=== PATIENT | male | born 1935 | race Caucasian/White ===

== ENCOUNTER 2019-01-05 07:50 | Inpatient (IN) | payer MEDICARE, OTHER ==
[2019-01-05 09:50] LABS: CHLORIDE,CL 104 mmol/L (98-107); SODIUM,NA 136 mmol/L (136-145)
--- NOTE | 2019-01-05 09:55 | EDM.PDOC ---
ED HPI GENERAL MEDICAL PROBLEM - General Chief Complaint: Genitourinary Problem Stated Complaint: Hematuria Time Seen by Provider: 01/05/19 09:19 Source of Information: Reports: Patient, Other ([facility]) History Limitations: Reports: No Limitations - History of Present Illness INITIAL COMMENTS - FREE TEXT/NARRATIVE: Patient sent to ER from [facility] home secondary to hematuria. Has had indwelling Anglin for two years per patient. Patient reports that he often has some blood noted in Anglin but that it comes and goes, eventually clearing up on its own. Denies trauma to Anglin/penis. Staff at [facility] were worried when they noted some bleeding at meatus around Anglin site. ER nurse did not feel that there was any significant amount of blood there when patient arrived. Anglin was changed shortly after arrival and a few small clots were noted. Patient himself feels ok. His only other complaint is that he feels a bit tired today. Denies abdominal pain or bladder pain. No other acute changes. Has been eating and drinking well. - Related Data Allergies Allergy/AdvReac Type Severity Reaction Status Date / Time No Known Allergies Allergy Verified 08/26/18 22:18 Home Meds: Home Meds Alendronate [Fosamax] 70 mg PO WEEKLY 11/18/15 [History] Amoxicillin [Amoxil] 2,000 mg PO ASDIRECTED PRN 11/18/15 [History] Calcium Carbonate [Tums Extra Strength] 1 tab PO BID 11/18/15 [History] Dextran 70/Hypromellose [Artificial Tears] 2 drop EYEBOTH ASDIRECTED PRN [History] Ergocalciferol (Vitamin D2) [Drisdol] 1 cap PO ASDIRECTED 11/18/15 [History] Insulin Glarg,Human.Rec.Analog [LantUS Solostar] 16 unit SUBCUT DAILY 11/18/15 [ History] Iron Aspgly&PS/B12/C/Ca/FA/Suc [Niferex-150 Forte] 1 cap PO BID 11/18/15 [ History] Mycophenolate [Myfortic] 180 mg PO BID 11/18/15 [History] Omeprazole [Prilosec] 20 mg PO DAILY 11/18/15 [History] Polyethylene Glycol 3350 [MiraLAX] 17 gm PO DAILY 01/14/16 [History] Sennosides/Docusate Sodium [Senna-S] 2 tab PO DAILY 11/18/15 [History] Tacrolimus [Prograf] 1 mg PO BEDTIME 11/18/15 [History] Tacrolimus [Prograf] 1.5 mg PO DAILY 11/18/15 [History] Tamsulosin HCl 0.8 mg PO DAILY 11/18/15 [History] Acetaminophen [Non-Aspirin] 650 mg PO Q6H PRN 08/27/18 [History] Aspirin [Halfprin] 81 mg PO DAILY 08/27/18 [History] Carvedilol [Coreg] 12.5 mg PO BID 08/27/18 [History] Finasteride 5 mg PO DAILY 08/27/18 [History] Furosemide [Lasix] 20 mg PO DAILY 08/27/18 [History] Lisinopril 2.5 mg PO DAILY 08/27/18 [History] Warfarin Sodium [Coumadin] 3 mg PO DAILY 08/27/18 [History] atorvaSTATin [Lipitor] 20 mg PO BEDTIME 08/27/18 [History] Past Medical History HEENT History: Reports: Allergic Rhinitis, Cataract, Impaired Vision, Macular Degeneration, Other (See Below). Denies: Hard of Hearing Other HEENT History: Patient wears glasses with history of strabismus and correction as below. 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 Dry eye syndrome. Nasal septal deviation. Cardiovascular History: Reports: Afib, CAD, Cardiomyopathy, Heart Failure, High Cholesterol, Hypertension, CO, PVD, Stents, Other (See Below). Denies: Aneurysm , Blood Clots/VTE/DVT, Heart Murmur, Syncope Other Cardiovascular History: Mild carotid occlusive disease. Non-STEMI in 2016. Respiratory History: Reports: Intubation, Previous, Pulmonary Fibrosis, Other ( See Below). Denies: Intubation, Difficult Other Respiratory History: Pulmonary fibrosis by chest x-ray. Gastrointestinal History: Reports: Bowel Obstruction, Chronic Constipation, GERD , Hemorrhoids, Other (See Below) Other Gastrointestinal History: Large right-sided ventral abdominal hernia. Recurrent ileus. 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 Acute renal failure in 2005 with subsequent dialysis and renal transplant as below. Bilateral renal cysts. Hydrocele. Hyperphosphatemia secondary to persistent renal insufficiency. Musculoskeletal History: Reports: Arthritis, Back Pain, Chronic, Neck Pain, Chronic, Osteoarthritis, Osteoporosis. Denies: Gout, RA, SLE Other Musculoskeletal History: Scoliosis. Neurological History: Reports: Concussion, Head Trauma, Other (See Below) Other Neuro History: Head concussion on 11/30/04. Patient requires a cane for ambulation. Psychiatric History: Reports: None Endocrine/Metabolic History: Reports: Diabetes, Type II, Hypothyroidism, IDDM, Osteopenia, Osteoporosis, Vitamin D Deficiency, Other (See Below). Denies: Diabetes, Type I, Diabetes Mellitus, Type 3c Other Endocrine/Metabolic History: Hyponatremia secondary to CHF. Hematologic History: Reports: Anemia (of CKD), Other (See Below) Other Hematologic History: Chronic anemia secondary to chronic illnesses and renal disease Immunologic History: Reports: Immunosuppression, Solid Organ Transplant, Other ( See Below). 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 Denies: Prostate Other Oncologic History: History of multiple skin cancers as above requiring excisions as below. Dermatologic History: Reports: Melanoma, Seborrheic Dermatitis, Other (See Below ). Denies: Eczema, Psoriasis Other Dermatologic History: Recurrent decubiti and actinic keratosis area - Past Surgical History Head Surgeries/Procedures: Reports: None HEENT Surgical History: Reports: Cataract Surgery, Laser Surgery, Other (See Below) Other HEENT Surgeries/Procedures: Left cataract surgery in 2002 with subsequent YAG treatment of the posterior capsule in 2004. Bilateral strabismus correction in 1962 Cardiovascular Surgical History: Reports: AICD, Coronary Artery Stent, Pacer, Other (See Below) Other Cardiovascular Surgeries/Procedures: AICD/pacemaker placement in 2016 and PTCA/stent in 2016. Male Surgical History: Reports: TURP-Transurethral Resection of Prostate, Other (See Below) Other Male Surgeries/Procedures: TURP in 2000. Renal transplant in May 2008. Oncologic Surgical History: Reports: Other (See Below) Other Oncologic Surgeries/Procedures: Excision of melanoma from the left shoulder. Basal cell carcinoma removed from the right forearm and nose. Additional history of excision of squamous cell carcinoma. Dermatological Surgical History: Reports: Skin Biopsy, Other (See Below) Other Dermatological Surgeries/Procedures: Multiple skin excision as above. - Past Imaging History Past Imaging History: Reports: MRI (MRI of the brain on 08/18/14), Stress Testing (Low level cardiac stress test on 12/29/15), Ultrasound (Renal ultrasound on 07/07/14.) Social & Family History - Family History Family Medical History: Noncontributory Cardiac: Reports: Afib, Aneurysm, CAD, Hypertension, CO, Other (See Below) Other Cardiac Family History: Father with CO at age 60. Brother with fatal ruptured abdominal aortic aneurysm at age 68. 2 brothers with atrial fibrillation. Hypertension in brother. Psychiatric: Reports: Anxiety, Depression, Other (See Below) Other Psychiatric Family History: Sister with anxiety depression disorder Endocrine/Metabolic: Reports: Diabetes, type II, Other (See Below) Other Endocrine/Metabolic Family History: Mother and sister with diabetes mellitus. Oncologic: Reports: Other (See Below) Other Oncologic Family History: Sister with breast cancer in her 60s. Mother with unknown type of skin cancer. Sister with fatal lung cancer in her 70s with history of tobacco use. 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 ED EXAM, RENAL/ - Physical Exam Exam: See Below Exam Limited By: No Limitations General Appearance: Alert, WD/WN, No Apparent Distress Eye Exam: Bilateral Eye: EOMI, PERRL Ears: Normal External Exam Nose: No: Nasal Deformity, Nasal Swelling, Nasal Drainage Throat/Mouth: Normal Lips, Normal Voice, No Airway Compromise Head: Atraumatic, Normocephalic Neck: Supple Respiratory/Chest: No Respiratory Distress, Lungs Clear, Normal Breath Sounds, No Accessory Muscle Use Cardiovascular: Regular Rate, Rhythm, No Edema, No Murmur GI/Abdominal: Normal Bowel Sounds, Soft, Non-Tender, No Distention (Male) Exam: Other (Anglin in place, no active bleeding around insertion). No : Urethral Discharge Rectal (Males) Exam: Normal Rectal Tone, Heme - Stool Back Exam: No: Muscle Spasm, Paraspinal Tenderness, Vertebral Tenderness Extremities: Non-Tender, No Pedal Edema, Normal Capillary Refill Neurological: Alert, Oriented, Normal Cognition, Other (equal tone and strength bilaterally) Psychiatric: Normal Affect, Normal Mood Skin Exam: Warm, Dry, Normal Color Course - Orders/Labs/Meds Orders: Active Orders 24 hr Category Date Time Status EKG Documentation Completion [RC] ASDIRECTED Care 01/05/19 10:05 Active Sodium Chloride 0.9% [Normal Saline] 1,000 ml Med 01/05/19 10:00 Active IV .BOLUS Sodium Chloride 0.9% [Saline Flush] Med 01/05/19 10:00 Active 10 ml FLUSH ASDIRECTED PRN Saline Lock Insert [OM.PC] Routine Oth 01/05/19 10:00 Ordered EKG 12 Lead [EK] Routine Ther 01/05/19 10:05 Ordered Medication Orders Sodium Chloride (Normal Saline) 1,000 mls @ 75 mls/hr IV .BOLUS ONE Stop: 01/05/19 23:19 Sodium Chloride (Saline Flush) 10 ml FLUSH ASDIRECTED PRN PRN Reason: Keep Vein Open Labs: Laboratory Tests 01/05/19 01/05/19 01/05/19 Range/Units 08:20 08:20 08:20 WBC 7.6 (4.0-10.2) K/uL RBC 3.63 L (4.33-5.41) M/uL Hgb 10.6 L (13.1-16.8) g/dL Hct 33.4 L (39.0-49.0) % MCV 92.0 (84.0-98.0) fL MCH 29.2 (28.2-33.3) pg MCHC 31.7 (31.7-36.0) g/dL RDW 12.6 (11.2-14.1) % Plt Count 177 (150-350) K/uL Neut % (Auto) 79.7 (45.0-80.0) % Lymph % (Auto) 9.5 L (10.0-50.0) % Dickenson % (Auto) 8.9 (2.0-14.0) % Eos % (Auto) 1.5 (0.0-5.0) % Baso % (Auto) 0.4 (0.0-2.0) % Neut # (Auto) 6.03 (1.40-7.00) K/uL Lymph # (Auto) 0.72 (0.50-3.50) K/uL Dickenson # (Auto) 0.67 (0.00-1.00) K/uL Eos # (Auto) 0.11 (0.00-0.50) K/uL Baso # (Auto) 0.03 (0.00-0.20) K/uL PT 23.2 H (9.5-12.0) SEC INR 2.2 APTT 40.7 H (21.0-31.3) SEC Sodium 136 (136-145) mmol/L Potassium 5.9 H* (3.5-5.1) mmol/L Chloride 104 (98-107) mmol/L Carbon Dioxide 27.0 (21.0-32.0) mmol/L BUN 52 H (7-18) mg/dL Creatinine 1.99 H (0.51-1.17) mg/dL Est Cr Clr Drug Dosing TNP Estimated GFR (MDRD) 32 mL/min Glucose 274 H (74-106) mg/dL Calcium 8.5 (8.5-10.1) mg/dL Total Bilirubin 0.5 (0.2-1.0) mg/dL AST 16 (15-37) U/L ALT 23 (12-78) U/L Alkaline Phosphatase 69 (46-116) IU/L Total Protein 6.6 (6.4-8.2) g/dL Albumin 3.3 L (3.4-5.0) g/dL Specimen Type Urine Color Urine Appearance Urine pH (5.0-9.0) Ur Specific [place] (1.005-1.030) Urine Protein (NEGATIVE) mg/dL Urine Glucose (UA) (NEGATIVE) mg/dL Urine Ketones (NEGATIVE) mg/dL Urine Occult Blood (NEGATIVE) Urine Nitrite (NEGATIVE) Urine Bilirubin (NEGATIVE) Urine Urobilinogen (0.2-1.0) E.U./dL Ur Leukocyte Esterase (NEGATIVE) Urine RBC /HPF Urine WBC /HPF Ur Epithelial Cells /LPF Urine Bacteria (NONE TO FEW) /HPF 01/05/19 Range/Units 09:20 WBC (4.0-10.2) K/uL RBC (4.33-5.41) M/uL Hgb (13.1-16.8) g/dL Hct (39.0-49.0) % MCV (84.0-98.0) fL MCH (28.2-33.3) pg MCHC (31.7-36.0) g/dL RDW (11.2-14.1) % Plt Count (150-350) K/uL Neut % (Auto) (45.0-80.0) % Lymph % (Auto) (10.0-50.0) % Dickenson % (Auto) (2.0-14.0) % Eos % (Auto) (0.0-5.0) % Baso % (Auto) (0.0-2.0) % Neut # (Auto) (1.40-7.00) K/uL Lymph # (Auto) (0.50-3.50) K/uL Dickenson # (Auto) (0.00-1.00) K/uL Eos # (Auto) (0.00-0.50) K/uL Baso # (Auto) (0.00-0.20) K/uL PT (9.5-12.0) SEC INR APTT (21.0-31.3) SEC Sodium (136-145) mmol/L Potassium (3.5-5.1) mmol/L Chloride (98-107) mmol/L Carbon Dioxide (21.0-32.0) mmol/L BUN (7-18) mg/dL Creatinine (0.51-1.17) mg/dL Est Cr Clr Drug Dosing Estimated GFR (MDRD) mL/min Glucose (74-106) mg/dL Calcium (8.5-10.1) mg/dL Total Bilirubin (0.2-1.0) mg/dL AST (15-37) U/L ALT (12-78) U/L Alkaline Phosphatase (46-116) IU/L Total Protein (6.4-8.2) g/dL Albumin (3.4-5.0) g/dL Specimen Type Urinfol Urine Color Red Urine Appearance Turbid Urine pH 7.5 (5.0-9.0) Ur Specific [place] 1.020 (1.005-1.030) Urine Protein >=300 H (NEGATIVE) mg/dL Urine Glucose (UA) 250 H (NEGATIVE) mg/dL Urine Ketones Negative (NEGATIVE) mg/dL Urine Occult Blood Moderate H (NEGATIVE) Urine Nitrite Negative (NEGATIVE) Urine Bilirubin Negative (NEGATIVE) Urine Urobilinogen 0.2 (0.2-1.0) E.U./dL Ur Leukocyte Esterase Negative (NEGATIVE) Urine RBC Packed /HPF Urine WBC 10-20 H /HPF Ur Epithelial Cells Rare /LPF Urine Bacteria Rare (NONE TO FEW) /HPF Meds: Medications Generic Name Dose Route Start Last Admin Trade Name Freq PRN Reason Stop Dose Admin Sodium Chloride 1,000 mls @ 75 mls/hr 01/05/19 10:00 Normal Saline IV 01/05/19 23:19 .BOLUS ONE Sodium Chloride 10 ml 01/05/19 10:00 Saline Flush FLUSH ASDIRECTED PRN Keep Vein Open - Re-Assessments/Exams Free Text/Narrative Re-Assessment/Exam: 01/05/19 10:06 [facility] for Anglin irrigation but have not as yet heard back from . Patient noted to have elevated K at 5.9 Review of previous labs shows that he usually runs high normal for potassium. BUN and Cr also elevated but their levels are not unusual when compared to previous levels. IV NS ordered as well as baseline EKG. Free Text/Narrative Re-Assessment/Exam: 01/05/19 10:27 [facility] called [facility] decline [facility] stating that no [facility] coverage available this weekend. Patient would prefer to stay here in [place] vs transfer to [place]. Will admit to floor for continuous bladder irrigation. Will continue to monitor potassium level. [facility] to take over care in AM. Departure - Departure Time of Disposition: 10:30 Disposition: Admitted As Inpatient 68 Condition: Good Clinical Impression: Hyperkalemia Hematuria Qualifiers: Hematuria type: gross Qualified Code(s): R31.0 - Gross hematuria - Discharge Information *PRESCRIPTION DRUG MONITORING PROGRAM REVIEWED*: Not Applicable *COPY OF PRESCRIPTION DRUG MONITORING REPORT IN PATIENT ALEX: Not Applicable Referrals: Sheets-Maira Jacome MD [Primary Care Provider] - Forms: ED Department Discharge - Problem List & Annotations (1) Hematuria SNOMED Code(s): 50092554 Code(s): R31.9 - HEMATURIA, UNSPECIFIED Status: Acute Priority: High Current Visit: Yes Onset Date: ~08/23/18 Annotation/Comment:: History of intermittent hematuria. [facility] staff feel that today's episode is more significant than usual. Some clots noted when Anglin changed in ER. Will admit for continuous bladder irrigation and see if hematuria clears. UC ordered. No fevers, UA did not show changes suggestive of acute infection. Qualifiers: Hematuria type: gross Qualified Code(s): R31.0 - Gross hematuria (2) Hyperkalemia SNOMED Code(s): 00664479 Code(s): E87.5 - HYPERKALEMIA Status: Acute Priority: High Current Visit: Yes Annotation/Comment:: IV fluids ordered. EKG ordered. Recheck levels today and tomorrow. Suspect secondary to chronic kidney failure (3) Renal failure SNOMED Code(s): 38596768 Code(s): N19 - UNSPECIFIED KIDNEY FAILURE Status: Chronic Priority: Low Current Visit: No Annotation/Comment:: Chronic Qualifiers: Renal failure chronicity: chronic (4) Transplant recipient SNOMED Code(s): 214234184 Code(s): Z94.89 - OTHER TRANSPLANTED ORGAN AND TISSUE STATUS Status: Acute Priority: Low Current Visit: No Annotation/Comment:: kidney transplant recipient (5) Osteoarthritis SNOMED Code(s): 506156807 Code(s): M19.90 - UNSPECIFIED OSTEOARTHRITIS, UNSPECIFIED SITE Status: Chronic Priority: Low Current Visit: No Annotation/Comment:: Stable by history Qualifiers: Osteoarthritis location: multiple joints Osteoarthritis type: primary Qualified Code(s): M15.0 - Primary generalized (osteo)arthritis (6) Hypertension SNOMED Code(s): 76038310 Code(s): I10 - ESSENTIAL (PRIMARY) HYPERTENSION Status: Chronic Priority : Low Current Visit: No Annotation/Comment:: Stable in the emergency room. Qualifiers: Hypertension type: essential hypertension Qualified Code(s): I10 - Essential (primary) hypertension (7) IDDM (insulin dependent diabetes mellitus) SNOMED Code(s): 88078169 Code(s): E11.9 - TYPE 2 DIABETES MELLITUS WITHOUT COMPLICATIONS; Z79.4 - MANAGER OFFICE SERVICES (CURRENT) USE OF INSULIN Status: Chronic Priority: Medium Current Visit: No Annotation/Comment:: QID/AC accuchecks ordered. - Problem List Review Problem List Initiated/Reviewed/Updated: Yes - My Orders Last 24 Hours: My Active Orders 01/05/19 10:00 Sodium Chloride 0.9% [Normal Saline] 1,000 ml IV .BOLUS Sodium Chloride 0.9% [Saline Flush] 10 ml FLUSH ASDIRECTED PRN Saline Lock Insert [OM.PC] Routine 01/05/19 10:05 EKG Documentation Completion [RC] ASDIRECTED EKG 12 Lead [EK] Routine - Assessment/Plan Admission H&P: Please use this note as an admission H&P Last 24 Hours: My Active Orders 01/05/19 10:00 Sodium Chloride 0.9% [Normal Saline] 1,000 ml IV .BOLUS Sodium Chloride 0.9% [Saline Flush] 10 ml FLUSH ASDIRECTED PRN Saline Lock Insert [OM.PC] Routine 01/05/19 10:05 EKG Documentation Completion [RC] ASDIRECTED EKG 12 Lead [EK] Routine Assessment:: as above Plan: as above. Anticipate 3-4 day stay with goal of hematuria to clear and potassium to normalize. May need to consult Urology if hematuria shows no improvement.
[2019-01-05] MEDS ORDERED: Sodium Chloride 0.9% 10 ML Syringe FLUSH PRN (10:00)
[2019-01-05] MEDS ORDERED: Sodium Chloride 0.9% 1,000 ML IV ONE (10:00)
[2019-01-05] MEDS ORDERED: Lidocaine 2% HCl 11 ML Jelly Filled Syringe ONE ×2 (11:19→11:20)
[2019-01-05] MEDS ORDERED: Clotrimazole 1% Crm 15 GM Tube TOP PRN (12:18)
[2019-01-05] MEDS ORDERED: Acetaminophen 325 MG Tab PO PRN (12:18)
[2019-01-05] MEDS ORDERED: Insulin Glarg,Human.Rec.Analog 100 UNIT/ML ML SUBCUT ONE (12:45)
[2019-01-05] MEDS ORDERED: Levothyroxine 50 MCG Tab PO ONE (12:45)
[2019-01-05] MEDS ORDERED: Furosemide 20 MG Tab PO ONE (12:45)
[2019-01-05] MEDS ORDERED: Omeprazole 20 MG Cap.CR PO ONE (12:45)
[2019-01-05] MEDS ORDERED: Mineral Oil/Petrolatum/Phenylephrine/Shark Liver Oil Oint 57 GM Tube RECTAL PRN (12:45)
[2019-01-05] MEDS ORDERED: Polyvinyl Alcohol 1.4% Ophth Soln 15 ML Bottle EYEBOTH PRN (12:45)
[2019-01-05] MEDS ORDERED: Tacrolimus 0.5 MG Cap PO SCH ×2 (14:00→21:00)
[2019-01-05] MEDS ORDERED: Bisacodyl 10 MG Supp RECTAL PRN (15:52)
[2019-01-05 17:10] VITALS: BP 143/73
--- NOTE | 2019-01-05 18:13 | PCM.DCSUM1 ---
Discharge Summary - Hospital Course Brief History: Admitted to floor for treatment of hematuria and hyperkalemia Diagnosis: Stroke: No - Discharge Data Discharge Date: 01/05/19 Discharge Disposition: DC/Tfer to Acute Hospital 02 Condition: Good - Discharge Diagnosis/Problem(s) (1) Hematuria SNOMED Code(s): 30683713 ICD Code: R31.9 - HEMATURIA, UNSPECIFIED Status: Acute Priority: High Current Visit: Yes Onset Date: ~08/23/18 Problem Details: History of intermittent hematuria. [facility] feel that today's episode is more significant than usual. Some clots noted when Truj[place] changed. 1400ml of urine drained at this time. Noted to have increased discomfort in bladder area/nausea around 1700. Increased bloody leakage noted around [place] site again. Patient discussed with from Urology and , Hospitalist. Bladder scan performed during discussion which showed greater than 1000cc retained urine. 2200cc of clots and urine drained using 60cc syringe and technique suggested by . Given the continued large quantity of clot formation, it was elected to transfer patient to [place] where Urology available to consult. Warfarin held today. Theraputic INR noted this morning. Qualifiers: Hematuria type: gross Qualified Code(s): R31.0 - Gross hematuria (2) Hyperkalemia SNOMED Code(s): 43333226 ICD Code: E87.5 - HYPERKALEMIA Status: Acute Priority: High Current Visit: Yes Problem Details: IV fluids ordered. EKG ordered. EKG overall unremarkable. Suspect secondary to chronic kidney failure. Improved to 5.8 at this time. (3) Renal failure SNOMED Code(s): 30455563 ICD Code: N19 - UNSPECIFIED KIDNEY FAILURE Status: Chronic Priority: Low Current Visit: No Problem Details: Chronic Qualifiers: Renal failure chronicity: chronic (4) Transplant recipient SNOMED Code(s): 097664799 ICD Code: Z94.89 - OTHER TRANSPLANTED ORGAN AND TISSUE STATUS Status: Acute Priority: Low Current Visit: No Problem Details: kidney transplant recipient (5) Osteoarthritis SNOMED Code(s): 256728678 ICD Code: M19.90 - UNSPECIFIED OSTEOARTHRITIS, UNSPECIFIED SITE Status: Chronic Priority: Low Current Visit: No Problem Details: Stable by history Qualifiers: Osteoarthritis location: multiple joints Osteoarthritis type: primary Qualified Code(s): M15.0 - Primary generalized (osteo)arthritis (6) Hypertension SNOMED Code(s): 65457527 ICD Code: I10 - ESSENTIAL (PRIMARY) HYPERTENSION Status: Chronic Priority : Low Current Visit: No Problem Details: Stable in the emergency room. 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 Consideration of adding sliding scale short acting insulin at time of admission. No additional insulin given prior to transfer to [place]. (8) Hyperglycemia SNOMED Code(s): 46915751 ICD Code: R73.9 - HYPERGLYCEMIA, UNSPECIFIED Status: Acute Priority: Medium Current Visit: Yes - Patient Summary/Data Hospital Course: as above. Given persistent large amount of clotting noted, patient transferred to [place] where Urology available to consult. Patient feels improved after 2200cc of urine mixed with blood clots removed via [place]. - Discharge Plan *PRESCRIPTION DRUG MONITORING PROGRAM REVIEWED*: Not Applicable *COPY OF PRESCRIPTION DRUG MONITORING REPORT IN PATIENT ALEX: Not Applicable Home Medications: Home Meds Alendronate [Fosamax] 70 mg PO WEEKLY@0600 11/18/15 [History] Amoxicillin [Amoxil] 2,000 mg PO ASDIRECTED PRN 11/18/15 [History] Calcium Carbonate [Tums Extra Strength] 1 tab PO BID@0900,209911/18/15 [History ] Dextran 70/Hypromellose [Artificial Tears] 2 drop EYEBOTH ASDIRECTED PRN [History] Ergocalciferol (Vitamin D2) [Drisdol] 1 cap PO Q30D@0900 11/18/15 [History] Insulin Glarg,Human.Rec.Analog [LantUS Solostar] 16 unit SUBCUT DAILY@0900 11/18 [History] Iron Aspgly&PS/B12/C/Ca/FA/Suc [Niferex-150 Forte] 1 cap PO BID@0900,2100 11/18/ 16 [History] Mycophenolate [Myfortic] 360 mg PO BID@899,209911/18/15 [History] Omeprazole [Prilosec] 20 mg PO DAILY@89911/18/15 [History] Polyethylene Glycol 3350 [MiraLAX] 17 gm PO DAILY@209911/18/15 [History] Sennosides/Docusate Sodium [Senna-S] 2 tab PO BID@899,209911/18/15 [History] Tacrolimus [Prograf] 0.5 mg PO QAM@89911/18/15 [History] Tacrolimus [Prograf] 1 mg PO DAILY@209911/18/15 [History] Acetaminophen [Non-Aspirin] 650 mg PO Q6H PRN 08/27/18 [History] Aspirin [Halfprin] 81 mg PO DAILY@89908/27/18 [History] Carvedilol [Coreg] 12.5 mg PO BID@899,209908/27/18 [History] Finasteride 5 mg PO DAILY@209908/27/18 [History] Furosemide [Lasix] 20 mg PO DAILY@89908/27/18 [History] Lisinopril 2.5 mg PO DAILY@89908/27/18 [History] Warfarin Sodium [Coumadin] 3 mg PO SUTUTHSA@209908/27/18 [History] atorvaSTATin [Lipitor] 20 mg PO DAILY@209908/27/18 [History] Clotrimazole [Antifungal] 1 applic TOP ASDIRECTED PRN 01/05/19 [History] Levothyroxine [Synthroid] 50 mcg PO DAILY@89901/05/19 [History] Lidocaine 2% [Xylocaine 2% Jelly] 5 ml TOP ASDIRECTED PRN 01/05/19 [History] Phenyleph/Mineral Oil/Petrolat [Preparation H Ointment] 1 applic RECTAL ASDIRECTED PRN 01/05/19 [History] Tacrolimus [Prograf] 1 mg PO DAILY@89901/05/19 [History] Tamsulosin HCl [Flomax] 0.8 mg PO DAILY@209901/05/19 [History] Warfarin [Coumadin] 2.5 mg PO MOWEFR@209901/05/19 [History] Forms: ED Department Discharge Referrals: Sheets-Maira Jacome MD [Primary Care Provider] - - Discharge Summary/Plan Comment DC Time >30 min.: No - General Info Date of Service: 01/05/19 Admission Dx/Problem (Free Text: Feels improved after removal of recent clots/urine Functional Status: Reports: Pain Controlled - Review of Systems General: Reports: Fatigue. Denies: Fever, Malaise, Night Sweats HEENT: Denies: Ear Pain, Eye Pain, Headaches, Sinus Congestion, Sore Throat Pulmonary: Denies: Shortness of Breath, Pleuritic Chest Pain, Sputum, Hemoptysis , Wheezing Cardiovascular: Denies: Chest Pain, Palpitations, Lightheadedness Gastrointestinal: Reports: Nausea (resolved at this time). Denies: Abdominal Pain, Diarrhea, Vomiting Genitourinary: Reports: Hematuria, Retention Musculoskeletal: Reports: No Symptoms (no acute changes from baseline) Skin: Reports: No Symptoms Neurological: Reports: No Symptoms Psychiatric: Reports: No Symptoms - Patient Data Vitals - Most Recent: Last Vital Signs Temp 36.1 C 01/05/19 17:09 Pulse 72 01/05/19 17:09 Resp 18 01/05/19 17:09 BP 143/73 H 01/05/19 17:09 Pulse Ox 96 01/05/19 17:09 Weight - Most Recent: 81.374 kg Lab Results - Last 24 hrs: Laboratory Results - last 24 hr 01/05/19 01/05/19 01/05/19 Range/Units 08:20 08:20 08:20 WBC 7.6 (4.0-10.2) K/uL RBC 3.63 L (4.33-5.41) M/uL Hgb 10.6 L (13.1-16.8) g/dL Hct 33.4 L (39.0-49.0) % MCV 92.0 (84.0-98.0) fL MCH 29.2 (28.2-33.3) pg MCHC 31.7 (31.7-36.0) g/dL RDW 12.6 (11.2-14.1) % Plt Count 177 (150-350) K/uL Neut % (Auto) 79.7 (45.0-80.0) % Lymph % (Auto) 9.5 L (10.0-50.0) % [place] % (Auto) 8.9 (2.0-14.0) % Eos % (Auto) 1.5 (0.0-5.0) % Baso % (Auto) 0.4 (0.0-2.0) % Neut # (Auto) 6.03 (1.40-7.00) K/uL Lymph # (Auto) 0.72 (0.50-3.50) K/uL [place] # (Auto) 0.67 (0.00-1.00) K/uL Eos # (Auto) 0.11 (0.00-0.50) K/uL Baso # (Auto) 0.03 (0.00-0.20) K/uL PT 23.2 H (9.5-12.0) SEC INR 2.2 APTT 40.7 H (21.0-31.3) SEC Sodium 136 (136-145) mmol/L Potassium 5.9 H* (3.5-5.1) mmol/L Chloride 104 (98-107) mmol/L Carbon Dioxide 27.0 (21.0-32.0) mmol/L BUN 52 H (7-18) mg/dL Creatinine 1.99 H (0.51-1.17) mg/dL Est Cr Clr Drug Dosing TNP Estimated GFR (MDRD) 32 mL/min Glucose 274 H (74-106) mg/dL POC Glucose (65-110) mg/dl Calcium 8.5 (8.5-10.1) mg/dL Total Bilirubin 0.5 (0.2-1.0) mg/dL AST 16 (15-37) U/L ALT 23 (12-78) U/L Alkaline Phosphatase 69 (46-116) IU/L Total Protein 6.6 (6.4-8.2) g/dL Albumin 3.3 L (3.4-5.0) g/dL Specimen Type Urine Color Urine Appearance Urine pH (5.0-9.0) Ur Specific [place] (1.005-1.030) Urine Protein (NEGATIVE) mg/dL Urine Glucose (UA) (NEGATIVE) mg/dL Urine Ketones (NEGATIVE) mg/dL Urine Occult Blood (NEGATIVE) Urine Nitrite (NEGATIVE) Urine Bilirubin (NEGATIVE) Urine Urobilinogen (0.2-1.0) E.U./dL Ur Leukocyte Esterase (NEGATIVE) Urine RBC /HPF Urine WBC /HPF Ur Epithelial Cells /LPF Urine Bacteria (NONE TO FEW) /HPF 01/05/19 01/05/19 01/05/19 Range/Units 09:20 17:08 17:10 WBC (4.0-10.2) K/uL RBC (4.33-5.41) M/uL Hgb (13.1-16.8) g/dL Hct (39.0-49.0) % MCV (84.0-98.0) fL MCH (28.2-33.3) pg MCHC (31.7-36.0) g/dL RDW (11.2-14.1) % Plt Count (150-350) K/uL Neut % (Auto) (45.0-80.0) % Lymph % (Auto) (10.0-50.0) % [place] % (Auto) (2.0-14.0) % Eos % (Auto) (0.0-5.0) % Baso % (Auto) (0.0-2.0) % Neut # (Auto) (1.40-7.00) K/uL Lymph # (Auto) (0.50-3.50) K/uL [place] # (Auto) (0.00-1.00) K/uL Eos # (Auto) (0.00-0.50) K/uL Baso # (Auto) (0.00-0.20) K/uL PT (9.5-12.0) SEC INR APTT (21.0-31.3) SEC Sodium (136-145) mmol/L Potassium 5.8 H* (3.5-5.1) mmol/L Chloride (98-107) mmol/L Carbon Dioxide (21.0-32.0) mmol/L BUN (7-18) mg/dL Creatinine (0.51-1.17) mg/dL Est Cr Clr Drug Dosing Estimated GFR (MDRD) mL/min Glucose (74-106) mg/dL POC Glucose 326 H* (65-110) mg/dl Calcium (8.5-10.1) mg/dL Total Bilirubin (0.2-1.0) mg/dL AST (15-37) U/L ALT (12-78) U/L Alkaline Phosphatase (46-116) IU/L Total Protein (6.4-8.2) g/dL Albumin (3.4-5.0) g/dL Specimen Type Urinfol Urine Color Red Urine Appearance Turbid Urine pH 7.5 (5.0-9.0) Ur Specific [place] 1.020 (1.005-1.030) Urine Protein >=300 H (NEGATIVE) mg/dL Urine Glucose (UA) 250 H (NEGATIVE) mg/dL Urine Ketones Negative (NEGATIVE) mg/dL Urine Occult Blood Moderate H (NEGATIVE) Urine Nitrite Negative (NEGATIVE) Urine Bilirubin Negative (NEGATIVE) Urine Urobilinogen 0.2 (0.2-1.0) E.U./dL Ur Leukocyte Esterase Negative (NEGATIVE) Urine RBC Packed /HPF Urine WBC 10-20 H /HPF Ur Epithelial Cells Rare /LPF Urine Bacteria Rare (NONE TO FEW) /HPF 01/05/19 Range/Units 17:10 WBC (4.0-10.2) K/uL RBC (4.33-5.41) M/uL Hgb 10.1 L (13.1-16.8) g/dL Hct 32.0 L (39.0-49.0) % MCV (84.0-98.0) fL MCH (28.2-33.3) pg MCHC (31.7-36.0) g/dL RDW (11.2-14.1) % Plt Count (150-350) K/uL Neut % (Auto) (45.0-80.0) % Lymph % (Auto) (10.0-50.0) % [place] % (Auto) (2.0-14.0) % Eos % (Auto) (0.0-5.0) % Baso % (Auto) (0.0-2.0) % Neut # (Auto) (1.40-7.00) K/uL Lymph # (Auto) (0.50-3.50) K/uL [place] # (Auto) (0.00-1.00) K/uL Eos # (Auto) (0.00-0.50) K/uL Baso # (Auto) (0.00-0.20) K/uL PT (9.5-12.0) SEC INR APTT (21.0-31.3) SEC Sodium (136-145) mmol/L Potassium (3.5-5.1) mmol/L Chloride (98-107) mmol/L Carbon Dioxide (21.0-32.0) mmol/L BUN (7-18) mg/dL Creatinine (0.51-1.17) mg/dL Est Cr Clr Drug Dosing Estimated GFR (MDRD) mL/min Glucose (74-106) mg/dL POC Glucose (65-110) mg/dl Calcium (8.5-10.1) mg/dL Total Bilirubin (0.2-1.0) mg/dL AST (15-37) U/L ALT (12-78) U/L Alkaline Phosphatase (46-116) IU/L Total Protein (6.4-8.2) g/dL Albumin (3.4-5.0) g/dL Specimen Type Urine Color Urine Appearance Urine pH (5.0-9.0) Ur Specific [place] (1.005-1.030) Urine Protein (NEGATIVE) mg/dL Urine Glucose (UA) (NEGATIVE) mg/dL Urine Ketones (NEGATIVE) mg/dL Urine Occult Blood (NEGATIVE) Urine Nitrite (NEGATIVE) Urine Bilirubin (NEGATIVE) Urine Urobilinogen (0.2-1.0) E.U./dL Ur Leukocyte Esterase (NEGATIVE) Urine RBC /HPF Urine WBC /HPF Ur Epithelial Cells /LPF Urine Bacteria (NONE TO FEW) /HPF MARTIN Results - Last 24 hrs: Microbiology 01/05/19 08:20 Stool Occult Blood (MARTIN) - Final Stool / Feces NEGATIVE OCCULT BLOOD Med Orders - Current: Current Medications Acetaminophen (Tylenol) 650 mg PO Q6H PRN PRN Reason: Pain Alendronate Sodium (Fosamax) 70 mg PO Q7D [facility] Artificial Tears (Liquitears 1.4% Ophth Soln) 0 ml EYEBOTH ASDIRECTED PRN PRN Reason: DRY EYES Aspirin (Halfprin) 81 mg PO DAILY@0900 [facility] Atorvastatin Calcium (Lipitor) 20 mg PO DAILY@2100 [facility] Bisacodyl (Dulcolax) 10 mg RECTAL DAILY PRN PRN Reason: Constipation Calcium Carbonate/Glycine (Tums Extra Strength) 750 mg PO BID@0900,2100 [facility] Carvedilol (Coreg) 12.5 mg PO BID@0900,2100 [facility] Clotrimazole (Clotrimazole 1%) 0 gm TOP ASDIRECTED PRN PRN Reason: fungal infections Finasteride (Proscar) 5 mg PO DAILY@2100 [facility] Furosemide (Lasix) 20 mg PO DAILY@0900 [facility] Sodium Chloride (Normal Saline) 1,000 mls @ 75 mls/hr IV .BOLUS ONE Stop: 01/05/19 23:19 Last Admin: 01/05/19 10:00 Dose: 75 mls/hr Insulin Glargine (Lantus) 16 unit SUBCUT DAILY@0900 [facility] Levothyroxine Sodium (Synthroid) 50 mcg PO DAILY@0900 [facility] Lisinopril (Prinivil) 2.5 mg PO DAILY@0900 [facility] Non-Formulary Medication (Mycophenolate [Myfortic]) 360 mg PO BID@0900,2100 [facility] Omeprazole (Omeprazole) 20 mg PO DAILY@0900 [facility] Phenyleph/Shark Oil/Min Oil/Petrol (Preparation H Oint) 0 gm RECTAL ASDIRECTED PRN PRN Reason: HEMORRHOIDS Polyethylene Glycol (Miralax) 17 gm PO DAILY@2100 [facility] Senna/Docusate Sodium (Senna Plus) 2 tab PO BID@0900,2100 [facility] Sodium Chloride (Saline Flush) 10 ml FLUSH ASDIRECTED PRN PRN Reason: Keep Vein Open Tacrolimus (Prograf) 1 mg PO DAILY@2100 [facility] Tacrolimus (Prograf) 1.5 mg PO QAM@0900 [facility] Last Admin: 01/05/19 14:04 Dose: 1.5 mg Tamsulosin HCl (Flomax) 0.8 mg PO DAILY@2100 [facility] Warfarin Sodium (Coumadin) 2.5 mg PO MOWEFR@2100 [facility] Warfarin Sodium (Coumadin) 3 mg PO SuTuThSa@2100 [facility] Discontinued Medications Furosemide (Lasix) 20 mg PO ONETIME ONE Stop: 01/05/19 12:46 Last Admin: 01/05/19 14:00 Dose: 20 mg Insulin Glargine (Lantus) 16 unit SUBCUT ONETIME ONE Stop: 01/05/19 12:46 Last Admin: 01/05/19 13:59 Dose: 16 units Levothyroxine Sodium (Synthroid) 50 mcg PO ONETIME ONE Stop: 01/05/19 12:46 Last Admin: 01/05/19 14:00 Dose: 50 mcg Lidocaine HCl (Glydo) Confirm Administered Dose 11 ml .ROUTE .STK-MED ONE Stop: 01/05/19 11:20 Non-Formulary Medication (Mycophenolate [Myfortic]) 180 mg PO BID@0900,2100 [facility] Non-Formulary Medication (Tacrolimus) 1 mg PO DAILY@0900 [facility] Omeprazole (Omeprazole) 20 mg PO ONETIME ONE Stop: 01/05/19 12:46 Last Admin: 01/05/19 13:59 Dose: 20 mg Tacrolimus (Prograf) 0.5 mg PO QAM@0900 [facility] - Exam General: Reports: Alert, Oriented, Cooperative, No Acute Distress HEENT: Reports: Pupils Equal, Pupils Reactive, EOMI, Mucous Membr. Moist/[place] Neck: Reports: Supple Lungs: Reports: Clear to Auscultation, Normal Respiratory Effort Cardiovascular: Reports: Regular Rate, Regular Rhythm GI/Abdominal Exam: Soft, Non-Tender, No Distention (Male) Exam: Other ([place] in place, currently no leakage of urine from around trujillo insertion point) Rectal (Males) Exam: Deferred Back Exam: Reports: Normal Inspection Extremities: Non-Tender, Normal Capillary Refill Skin: Reports: Warm, Dry Neurological: Reports: No New Focal Deficit Psy/Mental Status: Reports: Alert, Normal Affect, Normal Mood
[2019-01-05] MEDS ORDERED: atorvaSTATin 10 MG Tab PO SCH (21:00)
[2019-01-05] MEDS ORDERED: Carvedilol 12.5 MG Tab PO SCH (21:00)
[2019-01-05] MEDS ORDERED: Tamsulosin 0.4 MG Cap.ER PO SCH (21:00)
[2019-01-05] MEDS ORDERED: MYCOPHENOLATE 360 MG PO SCH (21:00)
[2019-01-05] MEDS ORDERED: Calcium Carbonate 750 MG Tab.Chew PO SCH (21:00)
[2019-01-05] MEDS ORDERED: MYCOPHENOLATE 180 MG PO SCH (21:00)
[2019-01-05] MEDS ORDERED: Finasteride 5 MG Tab PO SCH (21:00)
[2019-01-05] MEDS ORDERED: Polyethylene Glycol 3350 Powder 17 GM Packet PO SCH (21:00)
[2019-01-06] MEDS ORDERED: Lisinopril 5 MG Tab PO SCH (09:00)
[2019-01-06] MEDS ORDERED: Tacrolimus 0.5 MG Cap PO SCH (09:00)
[2019-01-06] MEDS ORDERED: Levothyroxine 50 MCG Tab PO SCH (09:00)
[2019-01-06] MEDS ORDERED: Aspirin 81 MG Tab.EC PO SCH (09:00)
[2019-01-06] MEDS ORDERED: Furosemide 20 MG Tab PO SCH (09:00)
[2019-01-06] MEDS ORDERED: Omeprazole 20 MG Cap.CR PO SCH (09:00)
[2019-01-06] MEDS ORDERED: Insulin Glarg,Human.Rec.Analog 100 UNIT/ML ML SUBCUT SCH (09:00)
[2019-01-06] MEDS ORDERED: TACROLIMUS 1 MG PO SCH (09:00)
[2019-01-06] MEDS ORDERED: Warfarin 2.5 MG Tab PO SCH (21:00)
[2019-01-08] MEDS ORDERED: Alendronate 70 MG Tab PO SCH (06:00)
== END 2019-01-05 18:50 | DRG 641 ==
LOC: LL.ED 07:50 → LL.MS 11:10
PROVIDERS: ADMIT Emergency Medicine; ATTEND Family Medicine
PROC: BT40ZZZ Ultrasonography of Bladder (ICD-10-PCS; principal; 2019-01-05)
DX: E87.5 Hyperkalemia (principal); Z94.0 Kidney transplant status; I13.0 Hypertensive heart and chronic kidney disease with heart failure and stage 1 through stage 4 chronic kidney disease, or unspecified chronic kidney disease; R31.0 Gross hematuria; E11.22 Type 2 diabetes mellitus with diabetic chronic kidney disease; N18.9 Chronic kidney disease, unspecified; M19.90 Unspecified osteoarthritis, unspecified site; E11.65 Type 2 diabetes mellitus with hyperglycemia; J30.9 Allergic rhinitis, unspecified; H54.7 Unspecified visual loss; H35.30 Unspecified macular degeneration; H04.129 Dry eye syndrome of unspecified lacrimal gland; J34.2 Deviated nasal septum; I48.91 Unspecified atrial fibrillation; I25.10 Atherosclerotic heart disease of native coronary artery without angina pectoris; I50.9 Heart failure, unspecified; E78.00 Pure hypercholesterolemia, unspecified; I25.2 Old myocardial infarction; I73.9 Peripheral vascular disease, unspecified; K59.09 Other constipation; K21.9 Gastro-esophageal reflux disease without esophagitis; N40.0 Benign prostatic hyperplasia without lower urinary tract symptoms; G89.29 Other chronic pain; M81.0 Age-related osteoporosis without current pathological fracture; M41.9 Scoliosis, unspecified; M85.80 Other specified disorders of bone density and structure, unspecified site; E03.9 Hypothyroidism, unspecified; E55.9 Vitamin D deficiency, unspecified; D63.1 Anemia in chronic kidney disease; Z79.4 Long term (current) use of insulin; Z79.01 Long term (current) use of anticoagulants; Z79.82 Long term (current) use of aspirin; Z79.899 Other long term (current) drug therapy; Z95.5 Presence of coronary angioplasty implant and graft; Z99.2 Dependence on renal dialysis; Z87.440 Personal history of urinary (tract) infections; Z85.828 Personal history of other malignant neoplasm of skin; Z98.42 Cataract extraction status, left eye; Z95.810 Presence of automatic (implantable) cardiac defibrillator
CPT/HCPCS: 36415; 51702; 51703; 51798; 80053; 81001; 82272; 82962; 84132; 85014; 85018; 85025; 85610; 85730; 87086; 93005; 96360; 96361; 99284-25; A9270-GY; J1815-GY; J7030; J7507

== ENCOUNTER 2019-03-20 13:13 | Emergency (ER) | payer MEDICARE, OTHER ==
[2019-03-20] MEDS ORDERED: 50% Dextrose in Water 50 ML Syringe IVPUSH PRN (13:14)
[2019-03-20] MEDS ORDERED: Glucagon,Human Recombinant 1 MG Vial IVPUSH ONE (13:19)
[2019-03-20] MEDS ORDERED: Famotidine 20 MG/2 ML SDV IVPUSH ONE (13:20)
[2019-03-20] MEDS ORDERED: Sodium Chloride 0.9% 10 ML Syringe FLUSH PRN (13:20)
--- NOTE | 2019-03-20 13:26 | EDM.PDOC ---
ED HPI GENERAL MEDICAL PROBLEM - General Chief Complaint: General Stated Complaint: Low blood sugar Time Seen by Provider: 03/20/19 13:13 Source of Information: Reports: Patient, Halfway Records, Old Records ([facility] chart/EMR) History Limitations: Reports: Altered Mental Status (Hypoglycemic, sedated) - History of Present Illness INITIAL COMMENTS - FREE TEXT/NARRATIVE: Patient was brought to the emergency room via ambulance with technical applications scientist accompaniment for evaluation of a severe hypoglycemic episode. Note that the patient did receive two 1 mg IM injections of glucagon and an ampule of oral glucose with no significant improvement of his symptoms. IV was also placed, however no further IV medications or treatment were given prior to arrival to our facilities. The patient apparently had breakfast this morning at about 9:30 hours with an Accu-Chek of 131 mg percent at that time. He did not arrive for lunch with patient found at 12:27 hours in his room with patient unresponsive and severely diaphoretic at that time. The patient was lying in his bed at that time with no history of significant fall, injury, etc. He is currently an extremely poor historian secondary to his hypoglycemia and sedation with possible CVA. Note that an additional history was taken after the patient became more responsive with no apparent recent problems with chest pain, anginal complaints, abdominal pain, nausea, emesis, UTI symptoms, cough, fever, headaches, visual changes, or other changes in his neurological status. No direct evidence of seizure activity, etc. per history from the paramedics, etc. He denies any current pain or discomfort. Onset: Unknown/Unsure (As above) Duration: Constant Location: Reports: Other (No pain) Improves with: Reports: None Worsens with: Reports: None Context: Reports: Other (As above). Denies: Sick Contact, Trauma Associated Symptoms: Reports: Confusion, Malaise. Denies: Chest Pain, Cough, Diaphoresis, Fever/Chills, Headaches, Loss of Appetite, Nausea/Vomiting, Rash, Seizure, Shortness of Breath, Syncope, Weakness Treatments UNDERWEAR TRIMMER: Reports: IV/IO, Other Medication(s) (As above) - Related Data Allergies Allergy/AdvReac Type Severity Reaction Status Date / Time adhesive tape Allergy Rash Verified 01/05/19 11:44 Bandaids Allergy Rash Uncoded 01/05/19 11:44 Home Meds: Home Meds Amoxicillin [Amoxil] 2,000 mg PO ASDIRECTED PRN 11/18/15 [History] Insulin Glarg,Human.Rec.Analog [LantUS Solostar] 16 unit SUBCUT DAILY@0911/18 [History] Mycophenolate [Myfortic] 360 mg PO BID@0900,209911/18/15 [History] Omeprazole [Prilosec] 20 mg PO DAILY@0911/18/15 [History] Polyethylene Glycol 3350 [MiraLAX] 17 gm PO DAILY@209911/18/15 [History] Tacrolimus [Prograf] 0.5 mg PO QAM@89911/18/15 [History] Tacrolimus [Prograf] 1 mg PO DAILY@209911/18/15 [History] Carvedilol [Coreg] 12.5 mg PO BID@0900,1800 08/27/18 [History] Lisinopril 2.5 mg PO DAILY@0900 08/27/18 [History] atorvaSTATin [Lipitor] 20 mg PO DAILY@209908/27/18 [History] Clotrimazole [Antifungal] 1 applic TOP ASDIRECTED PRN 01/05/19 [History] Levothyroxine [Synthroid] 50 mcg PO DAILY@0900 01/05/19 [History] Lidocaine 2% [Xylocaine 2% Jelly] 5 ml TOP ASDIRECTED PRN 01/05/19 [History] Tacrolimus [Prograf] 1 mg PO DAILY@0900 01/05/19 [History] Warfarin [Coumadin] 2.5 mg PO MOWEFR@1800 01/05/19 [History] Cholecalciferol (Vitamin D3) [Vitamin D3] 4,000 unit PO DAILY 03/20/19 [History] Hydrocortisone [Hydrocortisone 1% Crm] 1 applic TOP QID PRN 03/20/19 [History] Insulin Aspart [NovoLOG] 4 unit SQ DAILY@1200 03/20/19 [History] Nystatin [Nystop] 1 applic TOP TID@,,03/20/19 [History] Warfarin [Coumadin] 2 mg PO SUTUTHSA@1800 03/20/19 [History] Past Medical History HEENT History: Reports: Allergic Rhinitis, Cataract, Impaired Vision, Macular Degeneration, Other (See Below). Denies: Glaucoma, Hard of Hearing, Otitis Media, Retinal Detachment Other HEENT History: Patient wears glasses with history of strabismus and correction as below. 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 Dry eye syndrome. Nasal septal deviation. Cardiovascular History: Reports: Afib, CAD, Cardiomyopathy, Heart Failure, High Cholesterol, Hypertension, ID, Pacemaker, PTCA, PVD, Stents, Other (See Below). Denies: Aneurysm, Arrhythmia, Blood Clots/VTE/DVT, Heart Murmur, Syncope Other Cardiovascular History: Mild carotid occlusive disease. Non-STEMI in 2016. Respiratory History: Reports: Bronchitis, Recurrent, COPD, Intubation, Previous , Pulmonary Fibrosis, Other (See Below). Denies: Asthma, Intubation, Difficult , PE, Pneumothorax, Sleep Apnea, TB Other Respiratory History: Pulmonary fibrosis by chest x-ray. Gastrointestinal History: Reports: Bowel Obstruction, Chronic Constipation, GERD , Hemorrhoids, Other (See Below). Denies: Celiac Disease, Cholelithiasis, Colon Polyp, Gastritis, GI Bleed, Hepatitis, Inflammatory Bowel Disease, Irritable Bowel Syndrome, Jaundice, Pancreatitis, PUD Other Gastrointestinal History: Large right-sided ventral abdominal hernia. Recurrent ileus. Genitourinary History: Reports: Acute Renal Failure, BPH, Chronic Renal Insuffiency, Dialysis, Renal Disease, Retention, Urinary, Urinary Incontinence, UTI, Recurrent, Other (See Below). 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 Acute renal failure in 2005 with subsequent dialysis and renal transplant as below. Bilateral renal cysts. Hydrocele. Hyperphosphatemia secondary to persistent renal insufficiency. Musculoskeletal History: Reports: Arthritis, Back Pain, Chronic, Neck Pain, Chronic, Osteoarthritis, Osteoporosis. Denies: Fracture, Gout, RA, SLE Other Musculoskeletal History: Scoliosis. Neurological History: Reports: Concussion, Head Trauma, Other (See Below). Denies: Cerebral Aneurysms, CVA, Headaches, Chronic, Migraines, MS, Neuropathy, Diabetic, Neuropathy, Peripheral, Parkinson's, Reflex Sympathetic Dystrophy, Seizure, TIA, Vertigo Other Neuro History: Head concussion on 11/30/04. Patient requires a cane for ambulation. Psychiatric History: Reports: None Endocrine/Metabolic History: Reports: Diabetes, Type II, Hypothyroidism, IDDM, Osteopenia, Osteoporosis, Vitamin D Deficiency, Other (See Below). Denies: Diabetes, Type I, Diabetes Mellitus, Type 3c Other Endocrine/Metabolic History: Hyperkalemia. Hyponatremia secondary to CHF. Hematologic History: Reports: Anemia, Other (See Below). Denies: Blood Transfusion(s), Iron Deficiency Other Hematologic History: Chronic anemia secondary to chronic illnesses and renal disease Immunologic History: Reports: Immunosuppression, Solid Organ Transplant, Other ( See Below). 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 Dermatologic History: Reports: Melanoma, Seborrheic Dermatitis, Other (See Below ) Other Dermatologic History: Recurrent decubiti and actinic keratosis area - Past Surgical History Head Surgeries/Procedures: Reports: None HEENT Surgical History: Reports: Cataract Surgery, Laser Surgery, Other (See Below) Other HEENT Surgeries/Procedures: Left cataract surgery in 2002 with subsequent YAG treatment of the posterior capsule in 2004. Bilateral strabismus correction in 1962 Cardiovascular Surgical History: Reports: AICD, Coronary Artery Stent, Pacer, Other (See Below) Other Cardiovascular Surgeries/Procedures: AICD/pacemaker placement in 2015 and PTCA/stent in 2015. Male Surgical History: Reports: TURP-Transurethral Resection of Prostate, Other (See Below) Other Male Surgeries/Procedures: TURP in 2000. Renal transplant in May 2008. Oncologic Surgical History: Reports: Other (See Below) Other Oncologic Surgeries/Procedures: Excision of melanoma from the left shoulder. Basal cell carcinoma removed from the right forearm and nose. Additional history of excision of squamous cell carcinoma. Dermatological Surgical History: Reports: Skin Biopsy, Other (See Below) Other Dermatological Surgeries/Procedures: Skin excisions as above. - Past Imaging History Past Imaging History: Reports: CAT Scan (CT scan of the abdomen and pelvis using stone protocol on 10/09/18.), MRI (MRI of the brain on 08/18/14), Stress Testing (Low level cardiac stress test on 12/29/15), Ultrasound (Right scrotal ultrasound on 10/09/18. Renal ultrasound on 07/07/14.) Social & Family History - Family History Family Medical History: Noncontributory Cardiac: Reports: Afib, Aneurysm, CAD, Hypertension, ID, Other (See Below) Other Cardiac Family History: Father with ID at age 60. Brother with fatal ruptured abdominal aortic aneurysm at age 68. 2 brothers with atrial fibrillation. Hypertension in brother. Psychiatric: Reports: Anxiety, Depression, Other (See Below) Other Psychiatric Family History: Sister with anxiety depression disorder Endocrine/Metabolic: Reports: Diabetes, type II, Other (See Below) Other Endocrine/Metabolic Family History: Mother and sister with diabetes mellitus. Oncologic: Reports: Other (See Below) Other Oncologic Family History: Sister with breast cancer in her 60s. Mother with unknown type of skin cancer. Sister with fatal lung cancer in her 70s with history of tobacco use. - Tobacco Use Smoking Status *Q: Never Smoker Tobacco Use Within Last Twelve Months: No Used Tobacco, but Quit: No Smoking Cessation Information Provided To Patient: No Second Hand Smoke Exposure: No Second Hand Smoke Education Provided: No - Caffeine Use Caffeine Use: Reports: Coffee - Alcohol Use Alcohol Use History: No Days Per Week of Alcohol Use: 0 Number of Drinks Per Day: 0 Number of Drinks Per Day Comment: No previous DWIs, problems with alcohol abuse , etc. Total Drinks Per Week: 0 Alcohol Use in Last Twelve Months: No - Recreational Drug Use Recreational Drug Use: No - Living Situation & Occupation Living situation: Reports: (1985), Extended Care Facility (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 ED EXAM, GENERAL - Physical Exam Exam: See Below Exam Limited By: Altered Mental Status (Hypoglycemic sedation as above) General Appearance: Lethargic, Obtunded, Other (Kussmaul breathing) Eye Exam: Bilateral Eye: EOMI, Normal Fundi, PERRL Ears: Normal External Exam, Normal Canal, Hearing Grossly Normal, Hearing Loss ( Mild bilateral presbycusis with no hearing aids) Nose: Normal Inspection, Normal Mucosa, No Blood Throat/Mouth: Normal Lips, Normal Gums, Normal Oropharynx, Normal Voice, No Airway Compromise. No: Normal Teeth (Multiple missing teeth), Dysphagia, Perioral Cyanosis Head: Atraumatic, Normocephalic. No: Facial Swelling, Facial Tenderness, Sinus Tenderness Neck: Supple, Non-Tender, Full Range of Motion, Carotid Bruit (Mild bilateral carotid bruits versus transmitted heart sounds). No: Lymphadenopathy (L), Lymphadenopathy (R), Thyromegaly Respiratory/Chest: No Respiratory Distress, No Accessory Muscle Use, Chest Non- Tender, Rales (Mild bilateral basilar rales), Other (Initial Kussmaul breathing) . No: Rhonchi, Wheezing, Pleural Rub, Retractions Cardiovascular: Normal Peripheral Pulses, Regular Rate, Rhythm, No Edema, No Gallop, No JVD, No Rub, Systolic Murmur (1/6 JASWINDER of the aortic and mitral valves ). No: No Murmur, Gallop/S3, Gallop/S4, Extra Beats, Friction Rub Peripheral Pulses: 2+: Radial (L), Radial (R), Dorsalis Pedis (L), Dorsalis Pedis (R) GI/Abdominal: Normal Bowel Sounds, Soft, Non-Tender, No Organomegaly, No Distention, No Abnormal Bruit, No Mass, Pelvis Stable. No: Guarding (Male) Exam: Deferred Rectal (Males) Exam: Deferred Back Exam: Normal Inspection, Full Range of Motion. No: CVA Tenderness (L), CVA Tenderness (R), Muscle Spasm Extremities: Normal Inspection, Normal Range of Motion, Non-Tender, No Pedal Edema, Normal Capillary Refill, Other (Anglin catheter leg bag with clear appearing urine). No: Ellie's Sign Neurological: Confused, Slow to Respond, Unresponsive. No: Normal Reflexes ( Initial positive bilateral Babinskis right greater than left with borderline right facial hemiparesis and Kussmaul breathing as above. After administration of IV D50 and IV fluids patient became more responsive with normal subsequent neurological exam. Negative Babinski's, finger to nose, and pronator rotation tests. No evidence of facial paresis, tongue deviation, orthostasis, etc.. Excellent reverse thought processes.) Psychiatric: Normal Affect, Normal Mood Skin Exam: Warm, Intact, Normal Color, No Rash, Diaphoretic (Extremely diaphoretic on arrival and normal at time of discharge), Other (Moderate to severe diffuse seborrheic dermatitis). No: Wound/Incision Lymphatic: No Adenopathy EKG INTERPRETATION EKG Date: 03/20/19 Time: 13:33 Rhythm: Other (100% paced rhythm) Rate (Beats/Min): 63 [place]: Normal (Left cardiac axis) QRS: Normal (Paced rhythm as above) ST-T: Other (Nonspecific T-wave inversion ST changes in in leads 1, V1, and V2 with paced rhythm as above) QT: Normal WI/PQ Interval: Paced rhythm Comparison: Change From Previous EKG (Paced rhythm as above with first-degree AV block at time of last EKG on 01/05/19. Pacer function not entered at time of last EKG?) EKG Interpretation Comments: 1. No definite acute ischemic changes 2. 100% paced rhythm. Course - Vital Signs Last Recorded V/S: Last Vital Signs Temp 35.8 C 03/20/19 14:10 Pulse 61 03/20/19 15:51 Resp 18 03/20/19 15:51 BP 92/50 L 03/20/19 15:51 Pulse Ox 100 03/20/19 15:51 Vital Signs - 24 hr 03/20/19 03/20/19 03/20/19 14:10 14:22 14:37 Temperature [ 35.8 C Temporal] Pulse, 60 62 61 Peripheral [ Left Pulse Oximetry] Respiratory 16 15 14 Rate Blood Pressure 155/73 H 134/65 130/62 [Left Upper Arm ] O2 Sat by Pulse 100 99 98 Oximetry 03/20/19 03/20/19 03/20/19 14:52 15:21 15:37 Temperature [ Temporal] Pulse, 62 62 62 Peripheral [ Left Pulse Oximetry] Respiratory 14 19 14 Rate Blood Pressure 119/57 L 123/66 95/49 L [Left Upper Arm ] O2 Sat by Pulse 93 L 98 100 Oximetry 03/20/19 15:51 Temperature [ Temporal] Pulse, 61 Peripheral [ Left Pulse Oximetry] Respiratory 18 Rate Blood Pressure 92/50 L [Left Upper Arm ] O2 Sat by Pulse 100 Oximetry - Orders/Labs/Meds Orders: Active Orders 24 hr Category Date Time Status Blood Glucose Check, Bedside [] STAT Care 03/20/19 13:14 Active Blood Glucose Check, Bedside [] STAT Care 03/20/19 13:24 Active Blood Glucose Check, Bedside [] STAT Care 03/20/19 14:38 Active Blood Glucose Check, Bedside [] STAT Care 03/20/19 15:57 Active Cardiac Monitoring [] STAT Care 03/20/19 13:21 Active EKG Documentation Completion [RC] ASDIRECTED Care 03/20/19 13:21 Active NIH Stroke Scale [RC] ASDIRECTED Care 03/20/19 13:21 Active Oxygen Therapy, ED [RC] CONTINUOUS Care 03/20/19 13:21 Active Peripheral IV Care [RC] . DIRECTED Care 03/20/19 13:21 Active Pulse Oximetry [RC] CONTINUOUS Care 03/20/19 13:21 Active Up With Assistance [RC] ASDIRECTED Care 03/20/19 13:21 Active Vital Signs [RC] PFP Care 03/20/19 13:21 Active Chest 1V Frontal [CR] Stat Exams 03/20/19 13:21 Taken Head wo Cont [CT] Stat Exams 03/20/19 13:21 Taken PROLACTIN [REF] Stat Lab 03/20/19 13:25 Received Obtain Past Medical Record [OM.PC] Stat Oth 03/20/19 13:21 Active Peripheral IV Insertion Adult [OM.PC] Stat Oth 03/20/19 13:21 Ordered Resuscitation Status Stat Resus Stat 03/20/19 13:20 Ordered Labs: Laboratory Tests 03/20/19 03/20/19 03/20/19 Range/Units 13:22 13:25 13:25 WBC 4.8 (4.0-10.2) K/uL RBC 3.80 L (4.33-5.41) M/uL Hgb 10.6 L (13.1-16.8) g/dL Hct 33.8 L (39.0-49.0) % MCV 88.9 (84.0-98.0) fL MCH 27.9 L (28.2-33.3) pg MCHC 31.4 L (31.7-36.0) g/dL RDW 12.6 (11.2-14.1) % Plt Count 194 (150-350) K/uL Neut % (Auto) 68.4 (45.0-80.0) % Lymph % (Auto) 10.9 (10.0-50.0) % [place] % (Auto) 17.6 H (2.0-14.0) % Eos % (Auto) 2.7 (0.0-5.0) % Baso % (Auto) 0.4 (0.0-2.0) % Neut # (Auto) 3.26 (1.40-7.00) K/uL Lymph # (Auto) 0.52 (0.50-3.50) K/uL [place] # (Auto) 0.84 (0.00-1.00) K/uL Eos # (Auto) 0.13 (0.00-0.50) K/uL Baso # (Auto) 0.02 (0.00-0.20) K/uL PT 16.5 H (9.5-12.0) SEC INR 1.5 APTT 34.7 H (21.0-31.3) SEC D-Dimer, Quantitative (0-400) ng/mL Sodium (136-145) mmol/L Potassium (3.5-5.1) mmol/L Chloride (98-107) mmol/L Carbon Dioxide (21.0-32.0) mmol/L BUN (7-18) mg/dL Creatinine (0.51-1.17) mg/dL Est Cr Clr Drug Dosing Estimated GFR (MDRD) mL/min Glucose (74-106) mg/dL POC Glucose 247 H (65-110) mg/dl Lactic Acid (0.4-2.0) mmol/L Uric Acid (2.6-7.2) mg/dL Calcium (8.5-10.1) mg/dL Magnesium (1.8-2.4) mg/dL Total Bilirubin (0.2-1.0) mg/dL AST (15-37) U/L ALT (12-78) U/L Alkaline Phosphatase (46-116) IU/L Creatine Kinase (26-308) U/L Creatine Kinase Index (0.0-2.5) % CK-MB (CK-2) (0.00-3.60) ng/mL Troponin I (0.000-0.056) ng/mL NT-Pro-B Natriuret Pep (0-125) pg/mL Total Protein (6.4-8.2) g/dL Albumin (3.4-5.0) g/dL TSH, Ultra Sensitive (0.358-3.740) mIU/mL Specimen Type Urine Color Urine Appearance Urine pH (5.0-9.0) Ur Specific [place] (1.005-1.030) Urine Protein (NEGATIVE) mg/dL Urine Glucose (UA) (NEGATIVE) mg/dL Urine Ketones (NEGATIVE) mg/dL Urine Occult Blood (NEGATIVE) Urine Nitrite (NEGATIVE) Urine Bilirubin (NEGATIVE) Urine Urobilinogen (0.2-1.0) E.U./dL Ur Leukocyte Esterase (NEGATIVE) Urine RBC /HPF Urine WBC /HPF Ur Epithelial Cells /LPF Urine Bacteria (NONE TO FEW) /HPF 03/20/19 03/20/19 03/20/19 Range/Units 13:25 13:25 13:25 WBC (4.0-10.2) K/uL RBC (4.33-5.41) M/uL Hgb (13.1-16.8) g/dL Hct (39.0-49.0) % MCV (84.0-98.0) fL MCH (28.2-33.3) pg MCHC (31.7-36.0) g/dL RDW (11.2-14.1) % Plt Count (150-350) K/uL Neut % (Auto) (45.0-80.0) % Lymph % (Auto) (10.0-50.0) % [place] % (Auto) (2.0-14.0) % Eos % (Auto) (0.0-5.0) % Baso % (Auto) (0.0-2.0) % Neut # (Auto) (1.40-7.00) K/uL Lymph # (Auto) (0.50-3.50) K/uL [place] # (Auto) (0.00-1.00) K/uL Eos # (Auto) (0.00-0.50) K/uL Baso # (Auto) (0.00-0.20) K/uL PT (9.5-12.0) SEC INR APTT (21.0-31.3) SEC D-Dimer, Quantitative 225 (0-400) ng/mL Sodium 144 (136-145) mmol/L Potassium 4.0 D (3.5-5.1) mmol/L Chloride 109 H (98-107) mmol/L Carbon Dioxide 27.2 (21.0-32.0) mmol/L BUN 45 H (7-18) mg/dL Creatinine 1.75 H (0.51-1.17) mg/dL Est Cr Clr Drug Dosing TNP Estimated GFR (MDRD) 38 mL/min Glucose 66 L (74-106) mg/dL POC Glucose (65-110) mg/dl Lactic Acid 1.0 (0.4-2.0) mmol/L Uric Acid 6.6 (2.6-7.2) mg/dL Calcium 9.0 (8.5-10.1) mg/dL Magnesium 2.0 (1.8-2.4) mg/dL Total Bilirubin 0.4 (0.2-1.0) mg/dL AST 20 (15-37) U/L ALT 23 (12-78) U/L Alkaline Phosphatase 57 (46-116) IU/L Creatine Kinase 147 (26-308) U/L Creatine Kinase Index 2.0 (0.0-2.5) % CK-MB (CK-2) 2.90 (0.00-3.60) ng/mL Troponin I 0.022 (0.000-0.056) ng/mL NT-Pro-B Natriuret Pep 3416 H (0-125) pg/mL Total Protein 6.8 (6.4-8.2) g/dL Albumin 3.3 L (3.4-5.0) g/dL TSH, Ultra Sensitive 2.267 (0.358-3.740) mIU/mL Specimen Type Urine Color Urine Appearance Urine pH (5.0-9.0) Ur Specific [place] (1.005-1.030) Urine Protein (NEGATIVE) mg/dL Urine Glucose (UA) (NEGATIVE) mg/dL Urine Ketones (NEGATIVE) mg/dL Urine Occult Blood (NEGATIVE) Urine Nitrite (NEGATIVE) Urine Bilirubin (NEGATIVE) Urine Urobilinogen (0.2-1.0) E.U./dL Ur Leukocyte Esterase (NEGATIVE) Urine RBC /HPF Urine WBC /HPF Ur Epithelial Cells /LPF Urine Bacteria (NONE TO FEW) /HPF 03/20/19 03/20/19 03/20/19 Range/Units 14:42 14:50 15:57 WBC (4.0-10.2) K/uL RBC (4.33-5.41) M/uL Hgb (13.1-16.8) g/dL Hct (39.0-49.0) % MCV (84.0-98.0) fL MCH (28.2-33.3) pg MCHC (31.7-36.0) g/dL RDW (11.2-14.1) % Plt Count (150-350) K/uL Neut % (Auto) (45.0-80.0) % Lymph % (Auto) (10.0-50.0) % [place] % (Auto) (2.0-14.0) % Eos % (Auto) (0.0-5.0) % Baso % (Auto) (0.0-2.0) % Neut # (Auto) (1.40-7.00) K/uL Lymph # (Auto) (0.50-3.50) K/uL [place] # (Auto) (0.00-1.00) K/uL Eos # (Auto) (0.00-0.50) K/uL Baso # (Auto) (0.00-0.20) K/uL PT (9.5-12.0) SEC INR APTT (21.0-31.3) SEC D-Dimer, Quantitative (0-400) ng/mL Sodium (136-145) mmol/L Potassium (3.5-5.1) mmol/L Chloride (98-107) mmol/L Carbon Dioxide (21.0-32.0) mmol/L BUN (7-18) mg/dL Creatinine (0.51-1.17) mg/dL Est Cr Clr Drug Dosing Estimated GFR (MDRD) mL/min Glucose (74-106) mg/dL POC Glucose 118 H 155 H (65-110) mg/dl Lactic Acid (0.4-2.0) mmol/L Uric Acid (2.6-7.2) mg/dL Calcium (8.5-10.1) mg/dL Magnesium (1.8-2.4) mg/dL Total Bilirubin (0.2-1.0) mg/dL AST (15-37) U/L ALT (12-78) U/L Alkaline Phosphatase (46-116) IU/L Creatine Kinase (26-308) U/L Creatine Kinase Index (0.0-2.5) % CK-MB (CK-2) (0.00-3.60) ng/mL Troponin I (0.000-0.056) ng/mL NT-Pro-B Natriuret Pep (0-125) pg/mL Total Protein (6.4-8.2) g/dL Albumin (3.4-5.0) g/dL TSH, Ultra Sensitive (0.358-3.740) mIU/mL Specimen Type [place] Urine Color Yellow Urine Appearance Clear Urine pH 6.5 (5.0-9.0) Ur Specific [place] 1.015 (1.005-1.030) Urine Protein 100 H (NEGATIVE) mg/dL Urine Glucose (UA) Negative (NEGATIVE) mg/dL Urine Ketones Negative (NEGATIVE) mg/dL Urine Occult Blood Trace-lysed H (NEGATIVE) Urine Nitrite Negative (NEGATIVE) Urine Bilirubin Negative (NEGATIVE) Urine Urobilinogen 0.2 (0.2-1.0) E.U./dL Ur Leukocyte Esterase Trace H (NEGATIVE) Urine RBC 0-5 /HPF Urine WBC 0-5 /HPF Ur Epithelial Cells Not seen /LPF Urine Bacteria Rare (NONE TO FEW) /HPF Meds: Medications Discontinued Medications Generic Name Dose Route Start Last Admin Trade Name Freq PRN Reason Stop Dose Admin Dextrose/Water 50 ml 03/20/19 13:14 03/20/19 13:23 Dextrose 50% In Water IVPUSH 50 ml ONETIME PRN Administration Hypoglycemia Famotidine 40 mg 03/20/19 13:20 03/20/19 13:40 Pepcid IVPUSH 03/20/19 13:21 Not Given ONETIME ONE Glucagon 1 mg 03/20/19 13:19 03/20/19 13:48 Glucagen IVPUSH 03/20/19 13:20 Not Given ONETIME ONE Dextrose/Lactated Ringer's 1,000 mls @ 100 mls/hr 03/20/19 13:45 03/20/19 13: 37 Dextrose 5%-Lactated Ringers IV 100 mls/hr ASDIRECTED TRACI Administration Dextrose/Lactated Ringer's 1,000 mls @ 60 mls/hr 03/20/19 14:03 Dextrose 5%-Lactated Ringers IV ASDIRECTED TRACI Sodium Chloride 10 ml 03/20/19 13:20 Saline Flush FLUSH ASDIRECTED PRN Keep Vein Open - Radiology Interpretation Free Text/Narrative:: compliance monitor shows normal sinus rhythm in the 60s with 100% paced rhythm and no extrasystoles or other arrhythmia Chest x-ray, portable, shows moderate COPD and pulmonary fibrotic changes with pulmonary hypertension and probable centralized CHF with no pleural effusions. Left-sided pacemaker noted with leads in appropriate position. Prominent aortic arch with mild aortic valve calcification. Telephone consultation at 13:52 hours with the radiology department at [facility] with no evidence of acute CVA, hemorrhagic bleed, etc. with no change since MRI of the brain on 08/18/18. CT Results Date: 03/20/19 CT Results Time: 13:52 Departure - Departure Time of Disposition: 16:50 Disposition: Home, Self-Care 01 Condition: Fair Clinical Impression: Osteoarthritis, Hypoalbuminemia, Pulmonary fibrosis, CHF (congestive heart failure), IDDM (insulin dependent diabetes mellitus), Coronary artery disease, Renal insufficiency, Hypoglycemia, Need for comfort care - Discharge Information *PRESCRIPTION DRUG MONITORING PROGRAM REVIEWED*: Not Applicable *COPY OF PRESCRIPTION DRUG MONITORING REPORT IN PATIENT ALEX: Not Applicable Referrals: Maira Cooper MD [Primary Care Provider] - Forms: ED Department Discharge Additional Instructions: 1. Accu-Cheks recommended before each meal at bedtime and at 3 AM this morning with further recommendations from his regular provider when they are updated in the a.m. 2. Coumadin 2.5 mg today only with return to previous regimen secondary to somewhat decreased INR today with repeat INR recommended on 03/25. 3. Update regular provider in the a.m. as above concerning patient's hypoglycemic episode today, above Accu-Cheks, etc. with further medication adjustment, treatment, etc. per their instructions 4. Patient should be evaluated on an every 6 hour basis until tomorrow morning' s update. Neurological checks should be contacted with these vitals. 5. Please remember that we are ALWAYS here for you and want to answer any questions you may have. Feel free to call the hospital any time and we call you back ANGELO. - Problem List & Annotations (1) Hypoglycemia SNOMED Code(s): 854305279 Code(s): E16.2 - HYPOGLYCEMIA, UNSPECIFIED Status: Acute Priority: High Onset Date: 03/20/19 Annotation/Comment:: Severely symptomatic hypoglycemic episode with aggressive treatment both prior to arrival and in the emergency room as above. Note that secondary to patient's borderline neurological exam initially on his arrival a CT scan of the head was conducted with negative findings as above. His neurological status did completely normalize shortly after aggressive therapy as above with stable neurological findings during extended ER evaluation. D5LR infusion was titrated down slowly in the emergency room without sequelae and stable serial Accu-Cheks and after IV fluids were discontinued with patient able to drink orange juice, etc. prior to discharge. Close observation by prison staff. Regular provider to be updated in the a.m. as per discharge instructions. (2) IDDM (insulin dependent diabetes mellitus) SNOMED Code(s): 04797462 Code(s): E11.9 - TYPE 2 DIABETES MELLITUS WITHOUT COMPLICATIONS; Z79.4 - JAIL (CURRENT) USE OF INSULIN Status: Chronic Priority: Medium Annotation/Comment:: QID/AC accuchecks ordered. Regular provider to be updated in the a.m. Note severe hypoglycemic episode as above. (3) Coronary artery disease SNOMED Code(s): 58654122 Code(s): I25.10 - ATHSCL HEART DISEASE OF [place] CORONARY ARTERY W/O ANG PCTRS Status: Chronic Priority: Medium Annotation/Comment:: No chest pain or anginal type symptoms with diaphoresis secondary to his severe hypoglycemia. Otherwise as above. Qualifiers: Coronary Disease-Associated Artery/Lesion type: [place] artery [place] vs. transplanted heart: [place] heart Associated angina: without angina Qualified Code(s): I25.10 - Atherosclerotic heart disease of [place] coronary artery without angina pectoris (4) CHF (congestive heart failure) SNOMED Code(s): 61457999 Code(s): I50.9 - HEART FAILURE, UNSPECIFIED Status: Chronic Priority: High Annotation/Comment:: Mild CHF by today's chest x-ray despite significant BNP elevation. Cardiac enzymes otherwise normal with stable EKG. Continue to observe closely by prison staff and regular provider. Qualifiers: Heart failure type: unspecified Heart failure chronicity: acute on chronic Qualified Code(s): I50.9 - Heart failure, unspecified (5) Hypoalbuminemia SNOMED Code(s): 602188659 Code(s): E88.09 - OTH DISORDERS OF PLASMA-PROTEIN METABOLISM, NEC Status: Acute Priority: Medium Onset Date: 03/20/19 Annotation/Comment:: Continue to observe by regular providers. Consider high-protein) supplements. (6) Anemia SNOMED Code(s): 544404283 Code(s): D64.9 - ANEMIA, UNSPECIFIED Status: Acute Priority: High Annotation/Comment:: Stable known chronic anemia likely secondary to his renal disease, etc. Continue to observe closely by his regular providers. Qualifiers: Anemia type: unspecified type Qualified Code(s): D64.9 - Anemia, unspecified (7) Renal insufficiency SNOMED Code(s): 044876370, 087172164 Code(s): N28.9 - DISORDER OF KIDNEY AND URETER, UNSPECIFIED Status: Acute Priority: High Annotation/Comment:: Known history of renal disease including renal transplant. Stable renal function at this time. Continue to observe closely by regular provider as per discharge instructions. (8) Hypertension SNOMED Code(s): 30798691 Code(s): I10 - ESSENTIAL (PRIMARY) HYPERTENSION Status: Chronic Priority : Low Annotation/Comment:: Stable in the emergency room, although occasional nonsymptomatic hypertension and systolic blood pressures in the 90s. No medication changes for now. Continue to observe closely by regular provider as per discharge instructions. Qualifiers: Hypertension type: essential hypertension Qualified Code(s): I10 - Essential (primary) hypertension (9) Osteoarthritis SNOMED Code(s): 603780487 Code(s): M19.90 - UNSPECIFIED OSTEOARTHRITIS, UNSPECIFIED SITE Status: Chronic Priority: Low Annotation/Comment:: Stable by history Qualifiers: Osteoarthritis location: multiple joints Osteoarthritis type: primary Qualified Code(s): M15.0 - Primary generalized (osteo)arthritis (10) Pulmonary fibrosis SNOMED Code(s): 13551430 Code(s): J84.10 - PULMONARY FIBROSIS, UNSPECIFIED Status: Chronic Priority: Medium Annotation/Comment:: No recent fever or bronchitic type symptoms. (11) Need for comfort care SNOMED Code(s): 225939170, 628294595 Code(s): LHW6327 - Status: Chronic Priority: Medium Annotation/Comment :: Palliative/Comfort Care status confirmed during this evaluation. - Problem List Review Problem List Initiated/Reviewed/Updated: Yes - My Orders Last 24 Hours: My Active Orders 03/20/19 13:14 Blood Glucose Check, Bedside [RC] STAT 03/20/19 13:20 Resuscitation Status Stat 03/20/19 13:21 Cardiac Monitoring [RC] STAT EKG Documentation Completion [RC] ASDIRECTED NIH Stroke Scale [RC] ASDIRECTED Oxygen Therapy, ED [RC] CONTINUOUS Peripheral IV Care [RC] . DIRECTED Pulse Oximetry [RC] CONTINUOUS Up With Assistance [RC] ASDIRECTED Vital Signs [RC] PFP Chest 1V Frontal [CR] Stat Head wo Cont [CT] Stat Obtain Past Medical Record [OM.PC] Stat Peripheral IV Insertion Adult [OM.PC] Stat 03/20/19 13:24 Blood Glucose Check, Bedside [RC] STAT 03/20/19 13:25 PROLACTIN [REF] Stat 03/20/19 14:38 Blood Glucose Check, Bedside [RC] STAT 03/20/19 15:57 Blood Glucose Check, Bedside [RC] STAT - Assessment/Plan Last 24 Hours: My Active Orders 03/20/19 13:14 Blood Glucose Check, Bedside [RC] STAT 03/20/19 13:20 Resuscitation Status Stat 03/20/19 13:21 Cardiac Monitoring [RC] STAT EKG Documentation Completion [RC] ASDIRECTED NIH Stroke Scale [RC] ASDIRECTED Oxygen Therapy, ED [RC] CONTINUOUS Peripheral IV Care [RC] . DIRECTED Pulse Oximetry [RC] CONTINUOUS Up With Assistance [RC] ASDIRECTED Vital Signs [RC] PFP Chest 1V Frontal [CR] Stat Head wo Cont [CT] Stat Obtain Past Medical Record [OM.PC] Stat Peripheral IV Insertion Adult [OM.PC] Stat 03/20/19 13:24 Blood Glucose Check, Bedside [RC] STAT 03/20/19 13:25 PROLACTIN [REF] Stat 03/20/19 14:38 Blood Glucose Check, Bedside [RC] STAT 03/20/19 15:57 Blood Glucose Check, Bedside [RC] STAT Assessment:: As above Plan: As above. Extensive precautions were given to the patient and prison staff , who are in agreement with the treatment plan. A copy of this emergency room record is to be submitted to the prison. See Patient Instructions for further treatment and plan.
[2019-03-20] MEDS ORDERED: Dextrose 5%-Lactated Ringers 1,000 ML IV SCH ×2 (13:45→14:03)
[2019-03-20 13:57] LABS: CHLORIDE,CL 109 mmol/L (98-107); SODIUM,NA 144 mmol/L (136-145)
[2019-03-20 16:05] VITALS: BP 92/50
== END 2019-03-20 16:50 | disposition home or self-care (01) ==
LOC: LL.ED 13:13
DX: I13.2 Hypertensive heart and chronic kidney disease with heart failure and with stage 5 chronic kidney disease, or end stage renal disease (principal); I50.9 Heart failure, unspecified; N18.6 End stage renal disease; J84.10 Pulmonary fibrosis, unspecified; E11.22 Type 2 diabetes mellitus with diabetic chronic kidney disease; E88.09 Other disorders of plasma-protein metabolism, not elsewhere classified; E11.649 Type 2 diabetes mellitus with hypoglycemia without coma; M19.90 Unspecified osteoarthritis, unspecified site; I48.91 Unspecified atrial fibrillation; E78.00 Pure hypercholesterolemia, unspecified; I25.2 Old myocardial infarction; E03.9 Hypothyroidism, unspecified; E16.2 Hypoglycemia, unspecified; Z95.0 Presence of cardiac pacemaker; Z88.8 Allergy status to other drugs, medicaments and biological substances; Z79.899 Other long term (current) drug therapy; Z79.4 Long term (current) use of insulin; Z74.9 Problem related to care provider dependency, unspecified
CPT/HCPCS: 36415; 70450; 71045; 80053; 81001; 82550; 82553; 82962; 83605; 83735; 83880; 84146; 84443; 84484; 84550; 85025; 85379; 85610; 85730; 93005; 96360; 96374; 99285-25; J3490; J7042; J7060

== ENCOUNTER 2019-05-02 15:57 | Emergency (ER) | payer OTHER ==
[2019-05-02 16:09] VITALS: BP 165/74
--- NOTE | 2019-05-02 17:34 | EDM.PDOC ---
ED HPI GENERAL MEDICAL PROBLEM - General Chief Complaint: General Stated Complaint: Lab recheck, elevated creatinine Time Seen by Provider: 05/02/19 16:18 Source of Information: Reports: Patient, Other ([facility]) History Limitations: Reports: No Limitations - History of Present Illness INITIAL COMMENTS - FREE TEXT/NARRATIVE: Patient sent to get labs at request of Nephrology. Resides at [facility]. Has appointment with Nephrology on Sunday. Noted this week during routine labs that Cr was around 2.4 Nephrology wished to have the labs repeated here and have UA checked. Patient himself feels well when asked. No acute complaints. ROS unremarkable for acute changes. - Related Data Allergies Allergy/AdvReac Type Severity Reaction Status Date / Time adhesive tape Allergy Rash Verified 05/02/19 16:22 Bandaids Allergy Rash Uncoded 05/02/19 16:22 Home Meds: Home Meds Amoxicillin [Amoxil] 2,000 mg PO ASDIRECTED PRN 11/18/15 [History] Insulin Glarg,Human.Rec.Analog [LantUS Solostar] 16 unit SUBCUT DAILY@11/18 [History] Mycophenolate [Myfortic] 360 mg PO BID@09,209911/18/15 [History] Omeprazole [Prilosec] 20 mg PO DAILY@89911/18/15 [History] Polyethylene Glycol 3350 [MiraLAX] 17 gm PO DAILY@209911/18/15 [History] Tacrolimus [Prograf] 0.5 mg PO QAM@89911/18/15 [History] Tacrolimus [Prograf] 1 mg PO DAILY@209911/18/15 [History] Carvedilol [Coreg] 12.5 mg PO BID@0900,1800 08/27/18 [History] Lisinopril 2.5 mg PO DAILY@0908/27/18 [History] atorvaSTATin [Lipitor] 20 mg PO DAILY@209908/27/18 [History] Clotrimazole [Antifungal] 1 applic TOP ASDIRECTED PRN 01/05/19 [History] Levothyroxine [Synthroid] 50 mcg PO DAILY@0900 01/05/19 [History] Lidocaine 2% [Xylocaine 2% Jelly] 5 ml TOP ASDIRECTED PRN 01/05/19 [History] Tacrolimus [Prograf] 1 mg PO DAILY@0900 01/05/19 [History] Warfarin [Coumadin] 2.5 mg PO MOWEFR@1800 01/05/19 [History] Cholecalciferol (Vitamin D3) [Vitamin D3] 4,000 unit PO DAILY@0900 03/20/19 [ History] Hydrocortisone [Hydrocortisone 1% Crm] 1 applic TOP QID PRN 03/20/19 [History] Insulin Aspart [NovoLOG] 4 unit SQ DAILY@1200 03/20/19 [History] Nystatin [Nystop] 1 applic TOP TID@05,14,21 03/20/19 [History] Warfarin [Coumadin] 2 mg PO SUTUTHSA@1800 03/20/19 [History] Past Medical History HEENT History: Reports: Allergic Rhinitis, Cataract, Impaired Vision, Macular Degeneration, Other (See Below) Other HEENT History: Patient wears glasses with history of strabismus and correction as below. 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 Dry eye syndrome. Nasal septal deviation. Cardiovascular History: Reports: Afib, CAD, Cardiomyopathy, Heart Failure, High Cholesterol, Hypertension, CA, Pacemaker, PTCA, PVD, Stents, Other (See Below) Other Cardiovascular History: Mild carotid occlusive disease. Non-STEMI in 2016. Respiratory History: Reports: Bronchitis, Recurrent, COPD, Intubation, Previous , Pulmonary Fibrosis, Other (See Below) Other Respiratory History: Pulmonary fibrosis by chest x-ray. Gastrointestinal History: Reports: Bowel Obstruction, Chronic Constipation, GERD , Hemorrhoids, Other (See Below) Other Gastrointestinal History: Large right-sided ventral abdominal hernia. Recurrent ileus. 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 Acute renal failure in 2005 with subsequent dialysis and renal transplant as below. Bilateral renal cysts. Hydrocele. Hyperphosphatemia secondary to persistent renal insufficiency. Musculoskeletal History: Reports: Arthritis, Back Pain, Chronic, Neck Pain, Chronic, Osteoarthritis, Osteoporosis Other Musculoskeletal History: Scoliosis. Neurological History: Reports: Concussion, Head Trauma, Other (See Below) Other Neuro History: Head concussion on 11/30/04. Patient requires a cane for ambulation. Psychiatric History: Reports: None Endocrine/Metabolic History: Reports: Diabetes, Type II, Hypothyroidism, IDDM, Osteopenia, Osteoporosis, Vitamin D Deficiency, Other (See Below) Other Endocrine/Metabolic History: Hyperkalemia. Hyponatremia secondary to CHF. 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 Dermatologic History: Reports: Melanoma, Seborrheic Dermatitis, Other (See Below ) Other Dermatologic History: Recurrent decubiti and actinic keratosis area - Past Surgical History Head Surgeries/Procedures: Reports: None HEENT Surgical History: Reports: Cataract Surgery, Laser Surgery, Other (See Below) Other HEENT Surgeries/Procedures: Left cataract surgery in 2002 with subsequent YAG treatment of the posterior capsule in 2004. Bilateral strabismus correction in 1962 Cardiovascular Surgical History: Reports: AICD, Coronary Artery Stent, Pacer, Other (See Below) Other Cardiovascular Surgeries/Procedures: AICD/pacemaker placement in 2015 and PTCA/stent in 2015. Male Surgical History: Reports: TURP-Transurethral Resection of Prostate, Other (See Below) Other Male Surgeries/Procedures: TURP in 2000. Renal transplant in May 2008. Oncologic Surgical History: Reports: Other (See Below) Other Oncologic Surgeries/Procedures: Excision of melanoma from the left shoulder. Basal cell carcinoma removed from the right forearm and nose. Additional history of excision of squamous cell carcinoma. Dermatological Surgical History: Reports: Skin Biopsy, Other (See Below) - Past Imaging History Past Imaging History: Reports: CAT Scan (CT scan of the abdomen and pelvis using stone protocol on 10/09/18.), MRI (MRI of the brain on 08/18/14), Stress Testing (Low level cardiac stress test on 12/29/15), Ultrasound (Right scrotal ultrasound on 10/09/18. Renal ultrasound on 07/07/14.) Social & Family History - Family History Family Medical History: Noncontributory Cardiac: Reports: Afib, Aneurysm, CAD, Hypertension, CA, Other (See Below) Other Cardiac Family History: Father with CA at age 60. Brother with fatal ruptured abdominal aortic aneurysm at age 68. 2 brothers with atrial fibrillation. Hypertension in brother. Psychiatric: Reports: Anxiety, Depression, Other (See Below) Other Psychiatric Family History: Sister with anxiety depression disorder Endocrine/Metabolic: Reports: Diabetes, type II, Other (See Below) Other Endocrine/Metabolic Family History: Mother and sister with diabetes mellitus. Oncologic: Reports: Other (See Below) Other Oncologic Family History: Sister with breast cancer in her 60s. Mother with unknown type of skin cancer. Sister with fatal lung cancer in her 70s with history of tobacco use. 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 ED EXAM, GENERAL - Physical Exam Exam: See Below Exam Limited By: No Limitations General Appearance: Alert, No Apparent Distress, Other (Sitting in wheelchair watching TV) Eye Exam: Bilateral Eye: EOMI Throat/Mouth: Normal Voice, No Airway Compromise Head: Atraumatic, Normocephalic Neck: Supple, Non-Tender Respiratory/Chest: No Respiratory Distress, Lungs Clear, Normal Breath Sounds, No Accessory Muscle Use Cardiovascular: Regular Rate, Rhythm, No Murmur GI/Abdominal: Soft, Non-Tender (Male) Exam: Deferred Rectal (Males) Exam: Deferred Back Exam: No: CVA Tenderness (L), CVA Tenderness (R) Extremities: Normal Capillary Refill Neurological: Alert Psychiatric: Normal Affect, Normal Mood Skin Exam: Warm, Dry, Normal Color Course - Vital Signs Last Recorded V/S: Last Vital Signs Temp 36.7 C 05/02/19 16:07 Pulse 63 05/02/19 16:07 Resp 14 05/02/19 16:07 BP 165/74 H 05/02/19 16:07 Pulse Ox 98 05/02/19 16:07 - Orders/Labs/Meds Orders: Active Orders 24 hr Category Date Time Status CULTURE URINE [RM] Routine Lab 05/02/19 17:06 Received Saline Lock Insert [OM.PC] Routine Oth 05/02/19 17:35 Ordered Labs: Laboratory Tests 05/02/19 05/02/19 05/02/19 Range/Units 16:25 16:25 16:25 WBC 4.9 (4.0-10.2) K/uL RBC 3.75 L (4.33-5.41) M/uL Hgb 10.4 L (13.1-16.8) g/dL Hct 33.2 L (39.0-49.0) % MCV 88.5 (84.0-98.0) fL MCH 27.7 L (28.2-33.3) pg MCHC 31.3 L (31.7-36.0) g/dL RDW 13.6 (11.2-14.1) % Plt Count 175 (150-350) K/uL Neut % (Auto) 72.3 (45.0-80.0) % Lymph % (Auto) 14.4 (10.0-50.0) % [place] % (Auto) 10.5 (2.0-14.0) % Eos % (Auto) 2.4 (0.0-5.0) % Baso % (Auto) 0.4 (0.0-2.0) % Neut # (Auto) 3.56 (1.40-7.00) K/uL Lymph # (Auto) 0.71 (0.50-3.50) K/uL [place] # (Auto) 0.52 (0.00-1.00) K/uL Eos # (Auto) 0.12 (0.00-0.50) K/uL Baso # (Auto) 0.02 (0.00-0.20) K/uL PT 18.4 H (9.5-12.0) SEC INR 1.7 Sodium 137 (136-145) mmol/L Potassium 5.4 H (3.5-5.1) mmol/L Chloride 104 (98-107) mmol/L Carbon Dioxide 23.7 (21.0-32.0) mmol/L BUN 62 H (7-18) mg/dL Creatinine 2.17 H (0.51-1.17) mg/dL Est Cr Clr Drug Dosing 26.25 mL/min Estimated GFR (MDRD) 29 mL/min Glucose 284 H (74-106) mg/dL Calcium 8.5 (8.5-10.1) mg/dL Total Bilirubin 0.3 (0.2-1.0) mg/dL AST 12 L (15-37) U/L ALT 19 (12-78) U/L Alkaline Phosphatase 59 (46-116) IU/L Total Protein 6.4 (6.4-8.2) g/dL Albumin 3.2 L (3.4-5.0) g/dL Specimen Type Urine Color Urine Appearance Urine pH (5.0-9.0) Ur Specific [place] (1.005-1.030) Urine Protein (NEGATIVE) mg/dL Urine Glucose (UA) (NEGATIVE) mg/dL Urine Ketones (NEGATIVE) mg/dL Urine Occult Blood (NEGATIVE) Urine Nitrite (NEGATIVE) Urine Bilirubin (NEGATIVE) Urine Urobilinogen (0.2-1.0) E.U./dL Ur Leukocyte Esterase (NEGATIVE) Urine RBC /HPF Urine WBC /HPF Ur Epithelial Cells /LPF Urine Bacteria (NONE TO FEW) /HPF 05/02/19 Range/Units 17:06 WBC (4.0-10.2) K/uL RBC (4.33-5.41) M/uL Hgb (13.1-16.8) g/dL Hct (39.0-49.0) % MCV (84.0-98.0) fL MCH (28.2-33.3) pg MCHC (31.7-36.0) g/dL RDW (11.2-14.1) % Plt Count (150-350) K/uL Neut % (Auto) (45.0-80.0) % Lymph % (Auto) (10.0-50.0) % [place] % (Auto) (2.0-14.0) % Eos % (Auto) (0.0-5.0) % Baso % (Auto) (0.0-2.0) % Neut # (Auto) (1.40-7.00) K/uL Lymph # (Auto) (0.50-3.50) K/uL [place] # (Auto) (0.00-1.00) K/uL Eos # (Auto) (0.00-0.50) K/uL Baso # (Auto) (0.00-0.20) K/uL PT (9.5-12.0) SEC INR Sodium (136-145) mmol/L Potassium (3.5-5.1) mmol/L Chloride (98-107) mmol/L Carbon Dioxide (21.0-32.0) mmol/L BUN (7-18) mg/dL Creatinine (0.51-1.17) mg/dL Est Cr Clr Drug Dosing mL/min Estimated GFR (MDRD) mL/min Glucose (74-106) mg/dL Calcium (8.5-10.1) mg/dL Total Bilirubin (0.2-1.0) mg/dL AST (15-37) U/L ALT (12-78) U/L Alkaline Phosphatase (46-116) IU/L Total Protein (6.4-8.2) g/dL Albumin (3.4-5.0) g/dL Specimen Type Urinfol Urine Color Light yellow Urine Appearance Cloudy Urine pH 5.0 (5.0-9.0) Ur Specific [place] 1.020 (1.005-1.030) Urine Protein 30 H (NEGATIVE) mg/dL Urine Glucose (UA) 250 H (NEGATIVE) mg/dL Urine Ketones Negative (NEGATIVE) mg/dL Urine Occult Blood Large H (NEGATIVE) Urine Nitrite Negative (NEGATIVE) Urine Bilirubin Negative (NEGATIVE) Urine Urobilinogen 0.2 (0.2-1.0) E.U./dL Ur Leukocyte Esterase Small H (NEGATIVE) Urine RBC 40-50 H /HPF Urine WBC 40-50 H /HPF Ur Epithelial Cells Few /LPF Urine Bacteria Few (NONE TO FEW) /HPF Meds: Medications Discontinued Medications Generic Name Dose Route Start Last Admin Trade Name Freq PRN Reason Stop Dose Admin Ceftriaxone Sodium 1 gm/ 100 mls @ 200 mls/hr 05/02/19 17:35 05/02/19 17:57 Sodium Chloride IV 05/02/19 18:04 200 mls/hr ONETIME ONE Administration Sodium Chloride 250 mls @ 250 mls/hr 05/02/19 17:45 05/02/19 17:57 Normal Saline IV 250 mls/hr ASDIRECTED TRACI Administration Sodium Chloride 10 ml 05/02/19 17:35 Saline Flush FLUSH ASDIRECTED PRN Keep Vein Open Warfarin Sodium 2.5 mg 05/02/19 18:01 Coumadin PO 05/02/19 18:02 ONETIME ONE - Re-Assessments/Exams Free Text/Narrative Re-Assessment/Exam: 05/02/19 18:04 UTI identified. UC ordered. BUN 2.17 Hgb 10.4 K 5.4 Glu [address] Alvarez from [facility]. Plan is to give small bolus of NS, and Rocephin IV. Recheck K and INR tomorrow as outpatient. Additional dose of Rocephin planned tomorrow. IV fluids should help improve potassium level. Additional small dose of Coumadin given prior to discharge. Departure - Departure Time of Disposition: 18:30 Disposition: DC/Tfer to [facility] 03 Condition: Good Clinical Impression: UTI, Urinary tract infectious disease, Hyperkalemia, Subtherapeutic international normalized ratio (INR) Renal failure Qualifiers: Renal failure chronicity: chronic Chronic kidney disease stage: unspecified stage Qualified Code(s): N18.9 - Chronic kidney disease, unspecified - Discharge Information *PRESCRIPTION DRUG MONITORING PROGRAM REVIEWED*: Not Applicable *COPY OF PRESCRIPTION DRUG MONITORING REPORT IN PATIENT ALEX: Not Applicable Referrals: Sheets-Maira Jacome MD [Primary Care Provider] - Forms: ED Department Discharge Additional Instructions: Keep IV site protected. Follow up as outpatient tomorrow afternoon for another dose of Rocephin IV and recheck of potassium and INR. - My Orders Last 24 Hours: My Active Orders 05/02/19 17:06 CULTURE URINE [RM] Routine 05/02/19 17:35 Saline Lock Insert [OM.PC] Routine - Assessment/Plan Last 24 Hours: My Active Orders 05/02/19 17:06 CULTURE URINE [RM] Routine 05/02/19 17:35 Saline Lock Insert [OM.PC] Routine
[2019-05-02] MEDS ORDERED: Sodium Chloride 0.9% 10 ML Syringe FLUSH PRN (17:35)
[2019-05-02] MEDS ORDERED: cefTRIAXone 1 GM in Sodium Chloride 0.9% 100 ML IV ONE (17:35)
[2019-05-02] MEDS ORDERED: Sodium Chloride 0.9% 250 ML IV SCH (17:45)
[2019-05-02] MEDS ORDERED: Warfarin 2.5 MG Tab PO ONE (18:01)
== END 2019-05-02 19:00 ==
LOC: LL.ED 15:57
DX: N39.0 Urinary tract infection, site not specified (principal); E87.5 Hyperkalemia; R79.1 Abnormal coagulation profile; N18.9 Chronic kidney disease, unspecified; I48.91 Unspecified atrial fibrillation; I25.10 Atherosclerotic heart disease of native coronary artery without angina pectoris; I50.9 Heart failure, unspecified; E78.00 Pure hypercholesterolemia, unspecified; I13.0 Hypertensive heart and chronic kidney disease with heart failure and stage 1 through stage 4 chronic kidney disease, or unspecified chronic kidney disease; I25.2 Old myocardial infarction; N18.6 End stage renal disease; Z99.2 Dependence on renal dialysis; Z79.899 Other long term (current) drug therapy; Z79.4 Long term (current) use of insulin; Z79.01 Long term (current) use of anticoagulants
CPT/HCPCS: 36415; 80053; 81001; 85025; 85610; 87086; 87088; 87186; 96365; 99285; J0696; J7050

== ENCOUNTER → 2019-09-29 | Outpatient (CLI) | payer SELFPAY | LOC: LL.NPLAB 08:39 | PROVIDERS: ATTEND Family Medicine | DX: I48.0 Paroxysmal atrial fibrillation (principal) | CPT/HCPCS: 36416; 85610 ==

== ENCOUNTER 2021-11-27 21:26 | Inpatient (IN) | payer MEDICARE, OTHER ==
[2021-11-27] MEDS ORDERED: Sodium Chloride 0.9% 1,000 ML IV ONE (21:40)
[2021-11-27] MEDS ORDERED: cefTRIAXone 1 GM in Sodium Chloride 0.9% 100 ML IV ONE (21:40)
[2021-11-27] MEDS ORDERED: Sodium Chloride 0.9% 10 ML Syringe FLUSH PRN (21:40)
[2021-11-27 22:12] LABS: CHLORIDE,CL 109 mmol/L (98-107); SODIUM,NA 143 mmol/L (136-145)
[2021-11-27 22:13] LABS: ANION GAP 15.7 meq/L (7-15)
[2021-11-27 22:30] LABS: CORONAVIRUS COVID-19 NAA NEGATIVE (NEGATIVE); RESPIRATORY SYNCYTIAL VIR NAA NEGATIVE (NEGATIVE)
[2021-11-27] MEDS ORDERED: VANCOmycin 1.5 GM/300 ML 1.5 GM in Premix Bag 1 BAG IV ONE (23:00)
[2021-11-28] MEDS ORDERED: Polyethylene Glycol 3350 Powder 17 GM Packet PO PRN (01:17)
[2021-11-28] MEDS ORDERED: Ondansetron 4 MG Tab.DIS PO PRN (01:17)
[2021-11-28] MEDS ORDERED: Glucagon,Human Recombinant 1 MG Vial IM PRN (01:32)
[2021-11-28] MEDS ORDERED: 50% Dextrose in Water 50 ML Syringe IVPUSH PRN (01:32)
[2021-11-28] MEDS: Insulin Lispro 100 Units/ML 3 ML Vial SUBCUT SCH ×4 (07:49→20:28)
[2021-11-28] MEDS: Carvedilol 12.5 MG Tab PO SCH ×2 (07:59→17:28)
[2021-11-28] MEDS: Omeprazole 20 MG Cap.CR PO SCH (08:00)
[2021-11-28] MEDS: Levothyroxine 50 MCG Tab PO SCH (08:00)
[2021-11-28 08:22] LABS: ANION GAP 17.2 meq/L (7-15)
[2021-11-28] MEDS ORDERED: TACROLIMUS 1 MG PO SCH (09:00)
[2021-11-28] MEDS ORDERED: Tacrolimus 0.5 MG Cap PO SCH (09:00)
[2021-11-28] MEDS ORDERED: Non-Formulary Medication 1 Each (Insulin Glarg,Human.Rec.Analog 100 UNITS/ML Pen) SUBCUT SCH (09:00)
[2021-11-28] MEDS ORDERED: Insulin Glarg,Human.Rec.Analog 100 Unit/ML SUBCUT SCH (09:36)
[2021-11-28] MEDS: MYCOPHENOLATE 360 MG PO SCH ×2 (10:00→20:29)
[2021-11-28] MEDS: Insulin Glarg,Human.Rec.Analog 100 Unit/ML SUBCUT SCH (10:58)
[2021-11-28] MEDS ORDERED: Tacrolimus 0.5 MG Cap PO ONE (11:00)
[2021-11-28] MEDS: Acetaminophen 325 MG Tab PO PRN (17:36)
[2021-11-28] MEDS ORDERED: Warfarin 2.5 MG Tab PO SCH (20:00)
[2021-11-28] MEDS ORDERED: Non-Formulary Medication 1 Each (Tacrolimus 1 MG Capsule) PO SCH (20:00)
[2021-11-28] MEDS: Tacrolimus 0.5 MG Cap PO SCH (20:27)
[2021-11-28] MEDS: atorvaSTATin 10 MG Tab PO SCH (20:27)
[2021-11-28] MEDS: Polyethylene Glycol 3350 Powder 17 GM Packet PO SCH (20:27)
[2021-11-28] MEDS: cefTRIAXone 1 GM in Sodium Chloride 0.9% 100 ML IV SCH (22:07)
[2021-11-28] MEDS: Sodium Chloride 0.9% 10 ML Syringe FLUSH PRN (22:08)
[2021-11-29] MEDS: Insulin Lispro 100 Units/ML 3 ML Vial SUBCUT SCH ×4 (07:34→20:13)
[2021-11-29] MEDS: Levothyroxine 50 MCG Tab PO SCH (09:00)
[2021-11-29] MEDS: Carvedilol 12.5 MG Tab PO SCH ×2 (09:01→16:01)
[2021-11-29] MEDS: Tacrolimus 0.5 MG Cap PO SCH ×2 (09:01→20:07)
[2021-11-29] MEDS: Omeprazole 20 MG Cap.CR PO SCH (09:01)
[2021-11-29] MEDS: MYCOPHENOLATE 360 MG PO SCH ×2 (09:02→20:07)
[2021-11-29] MEDS: Insulin Glarg,Human.Rec.Analog 100 Unit/ML SUBCUT SCH (09:03)
[2021-11-29 10:56] LABS: ANION GAP 9.2 meq/L (7-15)
[2021-11-29] MEDS ORDERED: Warfarin 2 MG Tab PO SCH (20:00)
[2021-11-29] MEDS: Polyethylene Glycol 3350 Powder 17 GM Packet PO SCH (20:07)
[2021-11-29] MEDS: atorvaSTATin 10 MG Tab PO SCH (20:07)
[2021-11-29] MEDS ORDERED: Vancomycin 1.5 GM in Sodium Chloride 0.9% 500 ML IV SCH (22:00)
[2021-11-29] MEDS: cefTRIAXone 1 GM in Sodium Chloride 0.9% 100 ML IV SCH (22:08)
[2021-11-29] MEDS: Sodium Chloride 0.9% 10 ML Syringe FLUSH PRN (23:19)
[2021-11-30] MEDS: Acetaminophen 325 MG Tab PO PRN ×2 (01:50→17:31)
[2021-11-30] MEDS: Insulin Glarg,Human.Rec.Analog 100 Unit/ML SUBCUT SCH (07:30)
[2021-11-30] MEDS: Insulin Lispro 100 Units/ML 3 ML Vial SUBCUT SCH ×3 (08:00→17:26)
[2021-11-30 08:01] LABS: ANION GAP 16.7 meq/L (7-15)
[2021-11-30] MEDS ORDERED: Sodium Polystyrene Sulfonate 15 GM/60 ML Susp 60 ML Bot PO ONE (08:45)
[2021-11-30] MEDS: Tacrolimus 0.5 MG Cap PO SCH ×2 (09:10→19:13)
[2021-11-30] MEDS: Omeprazole 20 MG Cap.CR PO SCH (09:11)
[2021-11-30] MEDS: Levothyroxine 50 MCG Tab PO SCH (09:11)
[2021-11-30] MEDS: Carvedilol 12.5 MG Tab PO SCH ×2 (09:12→17:25)
[2021-11-30] MEDS: MYCOPHENOLATE 360 MG PO SCH ×2 (09:21→19:13)
[2021-11-30] MEDS: Polyethylene Glycol 3350 Powder 17 GM Packet PO SCH (19:13)
[2021-11-30] MEDS: atorvaSTATin 10 MG Tab PO SCH (19:13)
[2021-11-30] MEDS ORDERED: Insulin Glarg,Human.Rec.Analog 100 Unit/ML SUBCUT SCH (20:00)
[2021-11-30] MEDS: cefTRIAXone 1 GM in Sodium Chloride 0.9% 100 ML IV SCH (22:30)
[2021-11-30] MEDS: Sodium Chloride 0.9% 10 ML Syringe FLUSH PRN (22:30)
[2021-12-01] MEDS: Insulin Lispro 100 Units/ML 3 ML Vial SUBCUT SCH ×3 (01:43→11:19)
[2021-12-01] MEDS: Acetaminophen 325 MG Tab PO PRN (08:23)
[2021-12-01] MEDS: Tacrolimus 0.5 MG Cap PO SCH (08:24)
[2021-12-01] MEDS: Levothyroxine 50 MCG Tab PO SCH (08:26)
[2021-12-01] MEDS: Carvedilol 12.5 MG Tab PO SCH (08:26)
[2021-12-01] MEDS: Omeprazole 20 MG Cap.CR PO SCH (08:27)
[2021-12-01] MEDS: MYCOPHENOLATE 360 MG PO SCH (08:33)
[2021-12-01] MEDS ORDERED: Insulin Glarg,Human.Rec.Analog 100 Unit/ML SUBCUT SCH (09:00)
[2021-12-01 13:21] VITALS: BP 166/83; PULSE 66
== END 2021-12-01 14:10 | DRG 698 ==
LOC: LL.ED 21:26 → LL.MS 11-28 00:13
PROVIDERS: ADMIT Hospitalist; ATTEND Hospitalist
DX: A41.9 Sepsis, unspecified organism (principal); T83.511A Infection and inflammatory reaction due to indwelling urethral catheter, initial encounter; A41.51 Sepsis due to Escherichia coli [E. coli]; G93.41 Metabolic encephalopathy; R65.20 Severe sepsis without septic shock; Z93.6 Other artificial openings of urinary tract status; H35.30 Unspecified macular degeneration; H54.7 Unspecified visual loss; H04.129 Dry eye syndrome of unspecified lacrimal gland; I48.91 Unspecified atrial fibrillation; N17.9 Acute kidney failure, unspecified; I42.9 Cardiomyopathy, unspecified; I13.0 Hypertensive heart and chronic kidney disease with heart failure and stage 1 through stage 4 chronic kidney disease, or unspecified chronic kidney disease; Z94.0 Kidney transplant status; E78.00 Pure hypercholesterolemia, unspecified; N39.0 Urinary tract infection, site not specified; Z96.0 Presence of urogenital implants; M19.90 Unspecified osteoarthritis, unspecified site; N40.1 Benign prostatic hyperplasia with lower urinary tract symptoms; R33.9 Retention of urine, unspecified; M81.0 Age-related osteoporosis without current pathological fracture; R33.8 Other retention of urine; N18.30 Chronic kidney disease, stage 3 unspecified; E03.9 Hypothyroidism, unspecified; Z91.048 Other nonmedicinal substance allergy status; J84.10 Pulmonary fibrosis, unspecified; Z79.890 Hormone replacement therapy; E78.2 Mixed hyperlipidemia; Z20.822 Contact with and (suspected) exposure to COVID-19; E11.22 Type 2 diabetes mellitus with diabetic chronic kidney disease; J44.9 Chronic obstructive pulmonary disease, unspecified; K21.9 Gastro-esophageal reflux disease without esophagitis; E11.649 Type 2 diabetes mellitus with hypoglycemia without coma; E55.9 Vitamin D deficiency, unspecified; K59.09 Other constipation; N40.0 Benign prostatic hyperplasia without lower urinary tract symptoms; I25.10 Atherosclerotic heart disease of native coronary artery without angina pectoris; I50.9 Heart failure, unspecified; I48.0 Paroxysmal atrial fibrillation; D63.1 Anemia in chronic kidney disease; Z79.899 Other long term (current) drug therapy; Z97.3 Presence of spectacles and contact lenses; Z79.01 Long term (current) use of anticoagulants; I25.2 Old myocardial infarction; Z95.0 Presence of cardiac pacemaker; Z95.5 Presence of coronary angioplasty implant and graft; Z87.440 Personal history of urinary (tract) infections; Z87.19 Personal history of other diseases of the digestive system; Z79.4 Long term (current) use of insulin; Y84.6 Urinary catheterization as the cause of abnormal reaction of the patient, or of later complication, without mention of misadventure at the time of the procedure; Y92.89 Other specified places as the place of occurrence of the external cause
CPT/HCPCS: 0241U; 36415; 71045; 74150; 80048; 80053; 80197; 80202; 81001; 82947; 83605; 83735; 85025; 85027; 85379; 85610; 86140; 87040; 87077; 87086; 87088; 87186; 87426; 96365; 96367; 99223; 99232; 99233; 99239; 99285-25; A9270-GY; J0696; J1815-GY; J3370; J7030; J7040; J7507

== ENCOUNTER 2021-12-23 11:32 | Emergency (ER) | payer OTHER, MEDICARE ==
[2021-12-23] MEDS: Sodium Chloride 0.9% 10 ML Syringe FLUSH PRN (12:04)
[2021-12-23] MEDS: Ondansetron 4 MG/2 ML SDV IVPUSH ONE (12:04)
[2021-12-23 13:00] LABS: PTT,PARTIAL THROMBOPLSTIN TIME 55.5 SEC (23.6-29.8)
[2021-12-23 13:01] LABS: ANION GAP 9.9 meq/L (7-15); CHLORIDE,CL 105 mmol/L (98-107); SODIUM,NA 137 mmol/L (136-145)
[2021-12-23 15:28] VITALS: BP 154/75; PULSE 63
== END 2021-12-23 15:18 ==
LOC: LL.ED 11:32
DX: U07.1 COVID-19 (principal); N39.0 Urinary tract infection, site not specified; R79.1 Abnormal coagulation profile; I48.91 Unspecified atrial fibrillation; I25.10 Atherosclerotic heart disease of native coronary artery without angina pectoris; E11.22 Type 2 diabetes mellitus with diabetic chronic kidney disease; I13.0 Hypertensive heart and chronic kidney disease with heart failure and stage 1 through stage 4 chronic kidney disease, or unspecified chronic kidney disease; N18.9 Chronic kidney disease, unspecified; I50.9 Heart failure, unspecified; E78.00 Pure hypercholesterolemia, unspecified; J44.9 Chronic obstructive pulmonary disease, unspecified; E03.9 Hypothyroidism, unspecified; Z91.040 Latex allergy status; Z88.7 Allergy status to serum and vaccine; Z91.048 Other nonmedicinal substance allergy status; Z79.4 Long term (current) use of insulin; Z79.899 Other long term (current) drug therapy
CPT/HCPCS: 36415; 51702; 80053; 81001; 83605; 83735; 84100; 85025; 85610; 85730; 87086; 96374; 99284-25; J2405

== ENCOUNTER 2022-03-10 12:51 | Emergency (ER) | payer MEDICARE, OTHER ==
[2022-03-10] MEDS ORDERED: Sodium Chloride 0.9% 10 ML Syringe FLUSH PRN (13:21)
[2022-03-10] MEDS: Ondansetron 4 MG/2 ML SDV IVPUSH ONE (13:50)
[2022-03-10] MEDS: Sodium Chloride 0.9% 1,000 ML IV ONE (13:51)
[2022-03-10] MEDS: cefTRIAXone 1 GM Vial IVPUSH ONE (16:01)
[2022-03-10] MEDS ORDERED: Sodium Polystyrene Sulfonate 15 GM/60 ML Susp 60 ML Bot PO ONE (16:03)
[2022-03-10] MEDS ORDERED: Warfarin 2.5 MG Tab PO ONE (16:05)
[2022-03-10] MEDS: Ondansetron 4 MG/2 ML SDV ONE (20:36)
[2022-03-10 20:57] VITALS: BP 158/73; PULSE 68
== END 2022-03-10 17:15 ==
LOC: LL.ED 12:51
DX: N39.0 Urinary tract infection, site not specified (principal); N28.9 Disorder of kidney and ureter, unspecified; E87.5 Hyperkalemia; R79.1 Abnormal coagulation profile; I48.91 Unspecified atrial fibrillation; I25.10 Atherosclerotic heart disease of native coronary artery without angina pectoris; E78.00 Pure hypercholesterolemia, unspecified; I10 Essential (primary) hypertension; I25.2 Old myocardial infarction; E11.9 Type 2 diabetes mellitus without complications; E03.9 Hypothyroidism, unspecified; Z91.048 Other nonmedicinal substance allergy status; Z88.7 Allergy status to serum and vaccine; Z88.8 Allergy status to other drugs, medicaments and biological substances; Z79.4 Long term (current) use of insulin; Z79.899 Other long term (current) drug therapy; Z79.01 Long term (current) use of anticoagulants; Z86.16 Personal history of COVID-19
CPT/HCPCS: 36415; 74022; 80053; 81001; 83605; 83735; 83880; 84484; 85025; 85610; 96374; 96375; 99284; A9270; J0696; J2405; J7030

== ENCOUNTER 2022-05-19 10:09 | Emergency (ER) | payer MEDICARE, OTHER ==
[2022-05-19] MEDS ORDERED: Iopamidol 612 MG/ML 100 ML Bottle IVPUSH ONE (10:49)
[2022-05-19 11:26] LABS: ANION GAP 13.7 meq/L (7-15); CHLORIDE,CL 108 mmol/L (98-107); ESTIMATED GFR 24 mL/min (>=60); SODIUM,NA 139 mmol/L (136-145)
[2022-05-19 14:11] VITALS: BP 122/75; PULSE 69
== END 2022-05-19 15:30 ==
LOC: LL.ED 10:09
DX: J18.9 Pneumonia, unspecified organism (principal); N39.0 Urinary tract infection, site not specified; I11.0 Hypertensive heart disease with heart failure; I50.9 Heart failure, unspecified; R11.10 Vomiting, unspecified; I25.10 Atherosclerotic heart disease of native coronary artery without angina pectoris; J44.9 Chronic obstructive pulmonary disease, unspecified; I25.2 Old myocardial infarction; E11.9 Type 2 diabetes mellitus without complications; Z91.048 Other nonmedicinal substance allergy status; Z91.040 Latex allergy status; Z88.7 Allergy status to serum and vaccine; Z88.6 Allergy status to analgesic agent; Z79.4 Long term (current) use of insulin; Z79.01 Long term (current) use of anticoagulants; Z86.16 Personal history of COVID-19; Z20.822 Contact with and (suspected) exposure to COVID-19
CPT/HCPCS: 36415; 71046; 74176; 80053; 81001; 83605; 83735; 85025; 87086; 87088; 87186; 99285; U0002